=== PATIENT | female | born 1960 | race Caucasian/White ===

== ENCOUNTER 2020-10-14 11:46 | Outpatient (REF) | payer OTHER, SELFPAY ==
[2020-10-14 13:14] LABS: COVID-19 Test Negative (Negative)
== END 2020-10-14 11:47 | disposition home or self-care (01) ==
LOC: HO.EMPCOV 11:46
PROVIDERS: Visit Provider Internal Medicine
DX: Z20.828 Contact with and (suspected) exposure to other viral communicable diseases (principal)
CPT/HCPCS: 87635; C9803

== ENCOUNTER 2020-10-17 09:01 | Outpatient (REF) | payer OTHER, SELFPAY ==
[2020-10-17 09:27] LABS: COVID-19 Test Negative (Negative)
== END 2020-10-17 09:02 | disposition home or self-care (01) ==
LOC: HO.EMPCOV 09:01
PROVIDERS: Visit Provider Internal Medicine
DX: Z20.828 Contact with and (suspected) exposure to other viral communicable diseases (principal)
CPT/HCPCS: 87635; C9803

== ENCOUNTER 2020-10-28 13:13 | Outpatient (REF) | payer OTHER, SELFPAY ==
[2020-10-28 13:37] LABS: COVID-19 Test Negative (Negative)
== END 2020-10-28 13:14 | disposition home or self-care (01) ==
LOC: HO.EMPCOV 13:13
PROVIDERS: Visit Provider Internal Medicine
DX: Z20.828 Contact with and (suspected) exposure to other viral communicable diseases (principal)
CPT/HCPCS: 87635; C9803

== ENCOUNTER 2020-11-04 08:51 | Outpatient (REF) | payer OTHER, SELFPAY ==
[2020-11-04 09:26] LABS: COVID-19 Test Negative (Negative)
== END 2020-11-04 08:52 | disposition home or self-care (01) ==
LOC: HO.EMPCOV 08:51
PROVIDERS: Visit Provider Internal Medicine
DX: Z20.828 Contact with and (suspected) exposure to other viral communicable diseases (principal)
CPT/HCPCS: 87635; C9803

== ENCOUNTER 2020-12-16 10:38 | Outpatient (REF) | payer OTHER, SELFPAY ==
[2020-12-16 10:55] LABS: COVID-19 Test Negative (Negative)
== END 2020-12-16 10:39 | disposition home or self-care (01) ==
LOC: HO.EMPCOV 10:38
PROVIDERS: Visit Provider Internal Medicine
DX: Z20.822 Contact with and (suspected) exposure to COVID-19 (principal)
CPT/HCPCS: 36415; 87635; C9803

== ENCOUNTER 2021-02-15 19:42 | Emergency (ER) | payer OTHER, SELFPAY ==
--- NOTE | ~2021-02-15 | XR_ITS ---
EXAMINATION: XR CHEST CLINICAL INFORMATION: Cough. Pneumonia. COMPARISON: 03/28/2020 TECHNIQUE: Frontal view of the chest was obtained. FINDINGS: No significant abnormality is noted involving the heart, lungs, mediastinum, bony thorax or soft tissues. XR/XR chest 1V IMPRESSION: Unremarkable examination.
[2021-02-15 19:47] VITALS: BP 136/72; PULSE 100; RESP 18; TEMP 36.4; O2SAT 96
[2021-02-15 20:12] VITALS: BMI 26.6
--- NOTE | 2021-02-15 21:55 | ED.GENADULT ---
HPI - General Adult General Chief complaint: General Medical Stated complaint: CHEST INFECTION, ORAL INFECTION Time Seen by Provider: 02/15/21 20:16 Source: patient Mode of arrival: ambulatory Limitations: no limitations History of Present Illness HPI narrative: Patient been having dental pain seen dentist on Keflex now comes have a small swelling of the lower gums also complaining of cough for last few days no fever no chills Onset (ago): day(s) Related Data Previous Rx's Medication Instructions Recorded clindamycin HCl 300 mg PO QID #40 cap 02/15/21 tramadol 50 mg PO Q6H PRN #20 tab 02/15/21 Allergies Allergy/AdvReac Type Severity Reaction Status Date / Time Sulfa (Sulfonamide Allergy Intermediate MOUTH Unverified 08/15/20 15:40 Antibiotics) EXCORIATION [SULFA (SULFONAMIDE ANTIBIOTICS)] sulfamethoxazole Allergy Unknown MOUTH RASH Unverified 08/15/20 15:40 [From BACTRIM] trimethoprim [From BACTRIM] Allergy Unknown MOUTH RASH Unverified 08/15/20 15:40 Sulfa Allergy Unknown Uncoded 12/18/11 00:00 Review of Systems Review of Systems: Constitutional : No Weight loss, No Fever, No Chills ENT/Mouth : No sore throat, No Rhinorrhea Eyes: No Eye Pain, No Swelling Cardiovascular : No Chest Pain, no palpitations Respiratory : ++Cough, +Sputum, no shortness of breath Gastrointestinal : no Nausea, No Vomiting, No Diarrhea, No abdominal Pain, no black stools Genitourinary : No Dysuria, No Urinary Frequency Musculoskeletal : No joint pain, No Myalgias, No Joint Swelling Skin : No Skin Lesions, No rash Neuro : No Weakness, No Numbness, No Dizziness, No Headache Psych : No Anxiety/Panic, No Depression Heme/Lymph: No Bruising, No Lymphadenopathy Endocrine : No Polyuria, No Polydipsia All other systems reviewed and are negative PMFSH Past Medical History Medical History ADD (attention deficit disorder) Depressed Migraines Social History Social History Advance Directives: No Physical Exam Vital Signs: Vital Signs: Last Vital Signs Temp 97.5 F 02/15/21 19:47 Pulse 100 02/15/21 19:47 Resp 18 02/15/21 19:47 BP 136/72 02/15/21 19:47 Pulse Ox 96 02/15/21 19:47 Body Mass Index 26.6 Const: General: no acute distress Orientation/consciousness: patient oriented x3 HENMT: Head: Yes normocephalic Ears: hearing grossly normal bilaterally Teeth image: 1. Soft tissue swelling of the gum of tooth 25 Throat: Yes posterior oropharynx normal Resp: Effort & Inspection: normal respiratory effort Auscultation: clear to auscultation bilaterally, no crackles, no rales and no rhonchi Cardio: Palpation: normal PMI Rate: regular rate Rhythm: regular rhythm Heart sounds: S1 normal heart sound present and S2 normal heart sound present Peripheral pulses: Peripheral pulses 2+ throughout GI: Inspection: Yes normal to inspection Palpation (GI): Soft to palpation and nontender Neuro: General: patient oriented x3 and no focal motor deficits Procedures Abscess I/D Site: oral (Tooth 25) Side (if applicable): right Technique: needle aspiration Medical Decision Making [facility] Narrative Medical decision making narrative: Patient with small tooth abscess which is aspirated by the needle chest x-ray negative will change antibiotic to clindamycin advised to follow with dentist Discharge Plan Discharge Clinical Impression: Dental abscess Patient Disposition: Home, Self-Care Instructions: Dental Abscess (ED) Additional Instructions: Take antibiotic as prescribed and follow with your dentist Prescriptions: New clindamycin HCl 300 mg capsule 300 mg PO QID Qty: 40 RF: 0 tramadol 50 mg tablet 50 mg PO Q6H PRN (Reason: pain) Qty: 20 RF: 0 Interventions: ED Discharge Assessment Last Done: 02/15/21 22:17 Discharge Date/Time: 02/15/21 22:18
[2021-02-15] MEDS: traMADoL HCL 50 MG TABLET PO (22:16)
== END 2021-02-15 22:18 | disposition home or self-care (01) ==
PROVIDERS: Emergency Provider Internal Medicine; PCP Internal Medicine
DX: K04.7 Periapical abscess without sinus (principal); Z79.899 Other long term (current) drug therapy
CPT/HCPCS: 40800; 71045; 99283

== ENCOUNTER 2021-03-19 10:30 | Outpatient (REF) | payer OTHER, SELFPAY ==
[2021-03-19 11:16] LABS: MANUAL DIFF FLAG NO
[2021-03-19 11:35] LABS: Basophils Percent Auto 0.4 % (0-2); Eosinophils Absolute Auto 0.1 X10*3/uL (0.0-0.4); Eosinophils Percent Auto 1.5 % (0-4); Hematocrit 45.6 % (37-47); Hemoglobin 15.2 g/dl (12.0-16.0); Imm Gran Abs Auto 0.03 X10*3/uL (0.00-0.03); Imm Gran Pct Auto 0.4 % (0.0-0.4); Lymphocytes Absolute Auto 1.7 X10*3/uL (1.2-4.9); Lymphocytes Percent Auto 24.7 % (20-40); Mean Corpuscular HGB Conc 33.3 g/dl (31.0-35.0); Mean Corpuscular Hemoglobin 33.6 pg (27.0-33.0); Mean Corpuscular Volume 100.9 fL (80-98); Mean Platelet Volume 9.7 fL (9.4-12.3); Monocytes Absolute Auto 0.7 X10*3/uL (0.1-1.2); Monocytes Percent Auto 9.7 % (2-11); Neutrophils Absolute Auto 4.4 X10*3/uL (2.0-8.3); Neutrophils Percent Auto 63.3 % (45-73); Platelet Count 238 X10*3/uL (160-400); Red Blood Count 4.52 X10*6/uL (4.20-5.50); Red Cell Distribution Width 12.7 % (11.0-16.0); White Blood Count 6.9 X10*3/uL (4.8-10.8)
[2021-03-19 12:06] LABS: Anion Gap 13 (12-20); Blood Urea Nitrogen 10 mg/dL (9-16); Carbon Dioxide 27 mmol/L (22-29); Chloride 103 mmol/L (96-108); Cholesterol 216 mg/dL; Estimated Glomerular Filt Rate > 60; Glucose Fasting 96 mg/dL (60-99); Potassium 4.2 mmol/L (3.3-5.1); Sodium 139 mmol/L (135-145)
== END 2021-03-19 10:31 | disposition home or self-care (01) ==
LOC: HO.LAB 10:30
PROVIDERS: PCP Internal Medicine; Visit Provider Internal Medicine
DX: R53.83 Other fatigue (principal)
CPT/HCPCS: 36415; 80051; 82465; 82565; 82947; 84520; 85025

== ENCOUNTER 2021-04-22 08:15 | Inpatient (IN) | payer OTHER, SELFPAY ==
[2021-04-22] VITALS (10 sets, daily range): BP systolic 110–133; BP diastolic 59–70; PULSE 82–103; RESP 14–18; TEMP 36.4–36.9; O2SAT 94–98; BMI 27.5
--- NOTE | ~2021-04-22 | XR_ITS ---
EXAMINATION: XR KNEE, RIGHT CLINICAL INFORMATION: Fall. Pain. COMPARISON: None TECHNIQUE: Four views of the right knee. FINDINGS: There is a transverse comminuted fracture of the patella. There is 2.5 cm longitudinal displacement. No other fracture is seen. Femoral tibial joint is normal appearing. There is a joint effusion. There is soft tissue swelling XR/XR knee RT 4V IMPRESSION: Comminuted displaced patella fracture.
--- NOTE | ~2021-04-22 | FL_ITS ---
EXAMINATION: XR FLUOROSCOPY IMAGES CLINICAL INFORMATION: Comminuted distracted patellar fracture. Post reduction. COMPARISON: Radiographs right knee 04/22/2021 TECHNIQUE: Fluoroscopy performed by Dr. Velez Instr. Fluoroscopy time: 0.5 minutes DAP: 0.0491 Gycm2 Images: 2 FINDINGS: Comminuted patellar fracture is reduced with 3 longitudinal metallic pin and a cerclage wire anteriorly. Hardware is intact. Fracture fragments are in near-anatomic alignment. FL/FL guidance in OR IMPRESSION: Status post reduction patellar fracture.
--- NOTE | 2021-04-22 08:37 | ED_ITS ---
HPI - Extremity Injury (Lower) General Chief Complaint: Extremity Injury, Lower Stated Complaint: knee pain - fall Time Seen by Provider: 04/22/21 08:34 Source: patient and family Mode of arrival: wheelchair Limitations: no limitations History of Present Illness HPI Narrative: 60-year-old female with a past medical history of ADD, depression, migraines here with right knee pain status post fall last night. The patient also she tripped over a box lying directly on the right knee. There was no head injury or loss of consciousness. She now has pain in the right knee especially with weight-bearing Related Data Previous Rx's Medication Instructions Recorded clindamycin HCl 300 mg PO QID #40 cap 02/15/21 tramadol 50 mg PO Q6H PRN #20 tab 02/15/21 Allergies Allergy/AdvReac Type Severity Reaction Status Date / Time Sulfa (Sulfonamide Allergy Intermediate MOUTH Unverified 08/15/20 15:40 Antibiotics) EXCORIATION [SULFA (SULFONAMIDE ANTIBIOTICS)] sulfamethoxazole Allergy Unknown MOUTH RASH Unverified 08/15/20 15:40 [From BACTRIM] trimethoprim [From BACTRIM] Allergy Unknown MOUTH RASH Unverified 08/15/20 15:40 Sulfa Allergy Unknown Uncoded 12/18/11 00:00 Review of Systems Review of Systems: Yes all other systems are reviewed and are negative Constitutional: Constitutional: Reports no additional constitutional complaints, Denies body ache(s), Denies chills, Denies fever(s), Denies headache(s) and Denies weakness Eyes: Eyes: Reports no additional eye complaints and Denies change in vision ENT: Reports system reviewed and no additional complaints, except as documented, Denies dizziness, Denies headache(s), Denies nasal congestion, Denies nasal discharge and Denies neck pain Cardiovascular: Cardiovascular: Reports no additional cardiovascular complaints, Denies chest pain, Denies leg edema and Denies dyspnea Respiratory: Respiratory: Reports no additional respiratory complaints, Denies cough and Denies dyspnea Gastrointestinal: Gastrointestinal: Reports no additional gastrointestinal complaints, Denies abdominal pain, Denies diarrhea, Denies nausea and Denies vomiting Genitourinary: Genitourinary: Reports no additional female genitourinary complaints and Denies urinary incontinence Musculoskeletal: Musculoskeletal: Reports no additional musculoskeletal c omplaints, Denies back pain, Reports arthralgias, Reports joint swelling, Reports limited range of motion, Denies neck pain, Denies numbness and Denies tingling Integumentary/Breasts: Skin/Breast: Reports system reviewed and no additional complaints, except as docu and Denies rash Neurologic: Reports system reviewed and no additional complaints, except as documented, Denies Abnormal speech present, Denies dizziness, Denies headache(s), Denies numbness, Denies tingling and Denies weakness PMFSH Past Medical History Attestation statement: The following information was validated with the patient. Source: old records reviewed and nursing notes reviewed Medical History ADD (attention deficit disorder) Depressed Migraines Physical Exam Vital Signs: Vital Signs: Last Vital Signs Temp 98.4 F 04/22/21 09:46 Pulse 91 04/22/21 15:59 Resp 16 04/22/21 15:59 BP 133/61 04/22/21 15:59 Pulse Ox 94 04/22/21 13:29 Body Mass Index 27.5 Const: General: cooperative, healthy appearing, comfortable and no acute distress Orientation/consciousness: patient oriented x3 Limitations: no limitations HENMT: Head: Yes normal to inspection Ears: hearing grossly normal bilaterally General nose exam: Normal external nose present Face and sinus: Yes normal facial exam Mouth: Normal oral and palatal mucosa present Throat: Yes posterior oropharynx normal Eyes: General: appearance normal, both eyes and all related structures Pupils: Equal, round and reactive pupils present Neck: Neck: Yes normal visual inspection Chest: Chest palpation & inspection: normal inspection of the chest Resp: Effort & Inspection: normal respiratory effort Auscultation: clear to auscultation bilaterally Cardio: Rate: regular rate Rhythm: regular rhythm Peripheral pulses: Peripheral pulses 2+ throughout GI: Inspection: Yes normal to inspection Palpation (GI): Soft to palpation and nontender Auscultation: normal bowel sounds Back/Spine/Pelvis: Thoracic/Lumbar Spine: thoracic and lumbar spine normal to inspection Skin: General skin exam: no rashes or lesions noted Neuro: General: patient oriented x3, no focal motor deficits and normal sensation to monofilament Cranial nerves: Yes Equal, round and reactive pupils present Cognition (Neuro): normal cognition Speech: No Abnormal speech present Gait exam (Neuro): Normal gait present Motor exam (neuro): 5/5 motor strength present throughout Extrem: Other: Moderate swelling, ecchymosis and tenderness to the right anterior knee. Pain with flexion of the leg but able. No posterior knee pain or calf pain. General: Yes normal to inspection Course Course Course Narrative: Right knee pain status post mechanical fall. Will need x- rays, analgesia. 914-X-ray shows There is a transverse comminuted fracture of the patella. There is 2.5 cm longitudinal displacement. No other fracture is seen. Femoral tibial joint is normal appearing. There is a joint effusion. There is soft tissue swelling IMPRESSION: Comminuted displaced patella fracture. Call out to orthopedics to discuss. 919-Discussed with Adamaris MAYS from orthopedics. Recommended knee immobilizer, crutches with non-weight bearing. Discussed with patient. She has multiple steps to get up into her apartment. Will have Physical therapy come and evaluate her as well as case management if needed. CM also requested OT. 1644-Unfortunately, the patient will not get placed in a short-term rehab today. Nursing is aware. 1699-Sign out to night team pending above. Procedures Procedure Narrative Procedure Narrative: knee immobilizer Crutches MDM - Extremity Injury (Lower) Medical Records Attestation: I reviewed the patient's medical records. Lab Data Attestation: I reviewed the patient's lab results. Labs: Lab Results 04/22/21 Range/Units 16:07 COVID-19 ([facility]) Negative (Negative) COVID-19 Clin Com See Note Imaging Data knee right xray: Attestation: I personally reviewed and interpreted this imaging study as follows: Radiologist's impression: [address] [id number] ReportSigned Patient: Travis Hernandez#: [id number]: [id number]/Sex: 60 / FADM Date: 04/22/21Loc: EDAttending Dr: Ordering Physician: CALIXTO OSORIO NP Date of Service: 04/22/21 Procedure(s): XR knee RT 4V Accession Number(s): [id number] cc: CALIXTO OSORIO NP~ EXAMINATION: XR KNEE, RIGHT CLINICAL INFORMATION: Fall. Pain. COMPARISON: None TECHNIQUE: Four views of the right knee. FINDINGS: There is a transverse comminuted fracture of the patella. There is 2.5 cm longitudinal displacement. No other fracture is seen. Femoral tibial joint is normal appearing. There is a joint effusion. There is soft tissue swelling XR/XR knee RT 4V IMPRESSION: Comminuted displaced patella fracture. Discharge Plan Discharge Clinical Impression: Right patella fracture Qualifiers: Encounter type: initial encounter Fracture type: closed Fracture morphology: unspecified fracture morphology Fracture alignment: displaced Qualified Code(s): S82.001A - Unspecified fracture of right patella, initial encounter for closed fracture Prescriptions: No Action clindamycin HCl 300 mg capsule 300 mg PO QID Qty: 40 RF: 0 tramadol 50 mg tablet 50 mg PO Q6H PRN (Reason: pain) Qty: 20 RF: 0
[2021-04-22] MEDS: oxyCODONE HCl Immed Release 5 MG TABLET PO ×2 (08:43→11:30)
[2021-04-22] MEDS: Acetaminophen 325 MG TABLET 650 MG PO (08:43)
[2021-04-22] MEDS: Ketorolac Tromethamine 60 MG/2 ML VIAL IM (09:33)
--- NOTE | 2021-04-22 11:32 | MHC.CM.ED ---
Addendum entered by Zo Cat 04/22/21 11:35: Patient received 2nd Pfizer vaccine on 12/11/20. Original Note: Received case management consult from KRISTOPHER Martinez. Patient came to the ER after a mechanical fall. Work up showed a patellar fracture. Physical therapy eval completed. Acute rehab is being recommended. Met with patient in regards to discharge planning. 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 Patient agreeable to referrals to all 3 acute rehabs. Referrals made via allscripts. [facility] is only acute rehab willing to offer a bed. [facility] is in the process of obtaining insurance auth. Continue to monitor for d/c needs.
[2021-04-22] MEDS: oxyCODONE HCl Immed Release 5 MG TABLET 10 MG PO (15:57)
--- NOTE | 2021-04-22 16:00 | PC.NURSE ---
medicated for pain, awaiting rehAB PLACEMENT
[2021-04-22 16:39] LABS: COVID-19 Test Negative (Negative)
--- NOTE | 2021-04-22 17:03 | HE.PHANOTE ---
Pharmacy Consult ? Medication Reconciliation Pharmacy has completed the medication reconciliation and there were no significant medication issues requiring provider attention. Elisha Barton Pharm.D
--- NOTE | 2021-04-22 18:04 | MHC.CM.ED ---
CM met with pt to complete at HCP. HCP reviewed. HCP/daughter Kristi Villanueva ([phone]). HCP completed, signed, copies given to patient and uploaded into [employer] and [email or web address]. Spoke with liason from [facility]. No authorization tonight. Pt will stay overnight in ED. Will get hospital bed. 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 Covid test obtained. Pt is fully vaccinated with Pfizer (12/11/20. CM will follow for d/c needs.
[2021-04-23] VITALS (8 sets, daily range): BP systolic 97–123; BP diastolic 52–76; PULSE 68–95; RESP 14–20; TEMP 36.7–37.3; O2SAT 92–95
[2021-04-23] MEDS: oxyCODONE HCl Immed Release 5 MG TABLET 10 MG PO ×2 (03:42→22:19)
--- NOTE | 2021-04-23 08:40 | ECG_ITS ---
Test Reason : CP Blood Pressure : / mmHG Vent. Rate : 082 BPM Atrial Rate : 082 BPM P-R Int : 198 ms QRS Dur : 078 ms QT Int : 400 ms P-R-T Axes : 068 054 057 degrees QTc Int : 467 ms Normal sinus rhythm Possible Left atrial enlargement Borderline ECG When compared with ECG of 03-NOV-2016 15:02, No significant change was found Referred By: Michelle Serna Electronically Signed By:DANN CANTOR
[2021-04-23] MEDS: LORazepam 1 MG TABLET 2 MG PO (08:51)
[2021-04-23 09:04] LABS: MANUAL DIFF FLAG NO
[2021-04-23 09:06] LABS: Basophils Percent Auto 0.4 % (0-2); Eosinophils Absolute Auto 0.1 X10*3/uL (0.0-0.4); Eosinophils Percent Auto 1.8 % (0-4); Hematocrit 40.5 % (37-47); Hemoglobin 13.7 g/dl (12.0-16.0); Imm Gran Abs Auto 0.01 X10*3/uL (0.00-0.03); Imm Gran Pct Auto 0.1 % (0.0-0.4); Lymphocytes Absolute Auto 1.6 X10*3/uL (1.2-4.9); Lymphocytes Percent Auto 21.9 % (20-40); Mean Corpuscular HGB Conc 33.8 g/dl (31.0-35.0); Mean Corpuscular Hemoglobin 33.9 pg (27.0-33.0); Mean Corpuscular Volume 100.2 fL (80-98); Mean Platelet Volume 9.9 fL (9.4-12.3); Monocytes Absolute Auto 0.7 X10*3/uL (0.1-1.2); Monocytes Percent Auto 9.1 % (2-11); Neutrophils Absolute Auto 4.8 X10*3/uL (2.0-8.3); Neutrophils Percent Auto 66.7 % (45-73); Platelet Count 216 X10*3/uL (160-400); Red Blood Count 4.04 X10*6/uL (4.20-5.50); Red Cell Distribution Width 13.2 % (11.0-16.0); White Blood Count 7.2 X10*3/uL (4.8-10.8)
[2021-04-23 09:11] LABS: Prothrombin Time 12.2 SEC (10.8-13.0)
[2021-04-23] MEDS: ARIPiprazole 10 MG TABLET PO (09:22)
[2021-04-23] MEDS: Multivitamin TABLET 1 TAB PO (09:23)
[2021-04-23] MEDS: FLUoxetine HCl 20 MG CAPSULE 60 MG PO (09:23)
[2021-04-23 09:46] LABS: Anion Gap 13 (12-20); Blood Urea Nitrogen 15 mg/dL (9-16); Calcium 9.1 mg/dL (8.4-10.2); Carbon Dioxide 25 mmol/L (22-29); Chloride 104 mmol/L (96-108); Creatinine Clr Calc Pharmacy 99.8; Estimated Glomerular Filt Rate > 60; Glucose Random 96 mg/dL (60-115); Potassium 4.6 mmol/L (3.3-5.1); Sodium 137 mmol/L (135-145)
--- NOTE | 2021-04-23 12:29 | MHC.CM.ED ---
Received telephone call from Rina of [employer]. She is patient's casemanager at [facility] [facility]. Rina can be reached via telephone at [phone]. Rina is the point of contact for discharge planning. Continue to monitor for d/c needs.
[2021-04-23] MEDS: Methylphenidate HCl 10 MG TABLET 20 MG PO (13:25)
--- NOTE | 2021-04-23 13:30 | MHC.CM.ED ---
Late entry from 04/23/21 at 0900: Received notification from KRISTOPHER Martinez that patient will be admitted to the hospital today for surgery tomorrow. Nona frank [facility] aware and will follow for d/c needs.
[2021-04-23] MEDS: oxyCODONE HCl Immed Release 5 MG TABLET PO ×3 (13:34→19:31)
--- NOTE | 2021-04-23 14:53 | P.HPOP_ITS ---
History of Present Illness History of Present Illness Date of Service: 04/23/21 Chief complaint: knee pain - fall Narrative: Unique Hernandez is a 60 year old female who presented to the ED on 04/22/21 after sustaining a fall landing directly onto her knees. Immediately after the fall the patient felt immediate pain and was unable to ambulate. She then presented to the ED where x-rays were obtained and she was found to have a displaced transverse patella fracture. Orthopedics was then consulted for further evaluation. The patient was initially going to be managed in the outpatient setting with surgical planning for 04/24/21 and was pending acceptance to rehab. However, the patient has not been accepted to rehab and surgery is needed for tomorrow. She has been admitted to the orthopedic service in preparation of surgery tomorrow. Review of Systems Review of Systems: Yes all other systems are reviewed and are negative PMFSH Past Medical History Medical History ADD (attention deficit disorder) Depressed Migraines Meds Allergies Allergy/AdvReac Type Severity Reaction Status Date / Time Sulfa (Sulfonamide Allergy Intermediate MOUTH Unverified 08/15/20 15:40 Antibiotics) EXCORIATION [SULFA (SULFONAMIDE ANTIBIOTICS)] sulfamethoxazole Allergy Unknown MOUTH RASH Unverified 08/15/20 15:40 [From BACTRIM] trimethoprim [From BACTRIM] Allergy Unknown MOUTH RASH Unverified 08/15/20 15:40 Sulfa Allergy Unknown Uncoded 12/18/11 00:00 Active Medications: Current Medications Generic Name Dose Route Start Last Admin Trade Name Freq PRN Reason Stop Dose Admin Acetaminophen 650 mg 04/22/21 15:37 Acetaminophen 325 Mg Tablet PO QID PRN Pain, Mild (Pain Scale 1-3) Aripiprazole 10 mg 04/23/21 10:00 04/23/21 09:22 Aripiprazole 10 Mg Tablet PO 10 mg DAILY JERILYN Administration Fluoxetine HCl 60 mg 04/23/21 10:00 04/23/21 09:23 Fluoxetine Hcl 20 Mg Capsule PO 60 mg DAILY JERILYN Administration Ibuprofen 600 mg 04/22/21 15:37 Ibuprofen 600 Mg Tablet PO QID PRN Pain, Moderate (Pain Scale 4-6 Methylphenidate HCl 10 mg 04/23/21 15:30 Methylphenidate Hcl 10 Mg Tablet PO DAILY@1530 JERILYN Methylphenidate HCl 20 mg 04/23/21 12:00 04/23/21 13:25 Methylphenidate Hcl 10 Mg Tablet PO 20 mg DAILY@1200 [facility] Administration Multivitamins/Vitamin C 1 tab 04/23/21 10:00 04/23/21 09:23 Multivitamin Tablet PO 1 tab DAILY [facility] Administration Non-Formulary Medication 30 mg 04/23/21 09:15 Methylphenidate Hcl PO DAILY [facility] Oxycodone HCl 10 mg 04/22/21 15:35 04/23/21 03:42 Oxycodone Hcl Immed Release 5 Mg Tablet PO 10 mg Q6H PRN Administration Pain, Severe (Pain Scale 7-10) Oxycodone HCl 5 mg 04/22/21 15:36 04/23/21 13:34 Oxycodone Hcl Immed Release 5 Mg Tablet PO 5 mg Q6H PRN Administration Pain, Moderate (Pain Scale 4-6 Pharmacy Consult 1 each 04/22/21 16:44 Consult Rx Perform Med Rec MISCELLANE ONCE PRN Consult order Trazodone HCl 50 mg 04/23/21 09:05 Trazodone Hcl 50 Mg Tablet PO BEDTIME PRN insomnia Home Medications Medication Instructions Recorded Confirmed Last Taken Type aripiprazole 10 mg PO DAILY 04/22/21 04/22/21 04/21/21 History fluoxetine 60 mg PO DAILY 04/22/21 04/22/21 04/21/21 History methylphenidate HCl 10 mg PO DAILY@1530 04/22/21 04/22/21 04/21/21 History methylphenidate HCl 20 mg PO DAILY@1200 04/22/21 04/22/21 04/21/21 History methylphenidate HCl 30 mg PO DAILY 04/22/21 04/22/21 04/21/21 History multivitamin 1 tab PO DAILY 04/22/21 04/22/21 Unknown History naproxen 500 mg PO BID PRN 04/22/21 04/22/21 Unknown History trazodone 50 mg PO BEDTIME PRN 04/22/21 04/22/21 Unknown History Physical Exam Vital Signs: Vital Signs: Last Vital Signs Temp 98.3 F 04/22/21 21:11 Pulse 95 04/23/21 13:27 Resp 16 04/23/21 13:27 BP 118/76 04/23/21 13:27 Pulse Ox 92 04/23/21 13:27 Body Mass Index 27.5 Const: General: cooperative, healthy appearing, comfortable, no acute distress, well developed, alert and awake Orientation/consciousness: patient oriented x3 HENMT: Head: Yes normal to inspection, Yes normocephalic and Yes atraumatic Eyes: General: appearance normal, both eyes and all related structures Neck: Neck: Yes normal visual inspection and Yes no lymphadenopathy Resp: Effort & Inspection: normal respiratory effort and able to speak in complete sentences Cardio: Rate: regular rate Peripheral pulses: Peripheral pulses 2+ throughout GI: Inspection: Yes normal to inspection Palpation (GI): Soft to palpation Skin: General skin exam: no rashes or lesions noted Neuro: General: patient oriented x3 Extrem: Other: Right knee moderate edema with two superficial skin abrasions. She is unable to flex or extend the knee. Sensation is intact. She is able to plantarflex and dorsiflex. Pedal pulse intact. Psych: Mental Status: mental status grossly normal Results Labs Result Diagrams: 04/23/21 08:58 04/23/21 08:58 Labs: Abnormal lab results 04/23/21 Range/Units 08:58 RBC 4.04 L (4.20-5.50) X10*6/uL MCV 100.2 H (80-98) fL MCH 33.9 H (27.0-33.0) pg H & H 04/23/21 Range/Units 08:58 Hgb 13.7 (12.0-16.0) g/dl Hct 40.5 (37-47) % Coagulation 04/23/21 Range/Units 08:58 INR 1.0 (0.9-1.1) All other labs normal. Assessment and Plan (1) Right patella fracture: Qualifiers: Encounter type: initial encounter Fracture alignment: displaced Fracture morphology: unspecified fracture morphology Fracture type: closed Qualified Code(s): S82.001A - Unspecified fracture of right patella, initial encounter for closed fracture Status: Acute Ms. Elam is a 60 yo female who presented to the ED after sustaining a fall on 04/22/21 onto her right knee. After the fall she felt immediate pain and was unable to ambulate. She presented to the ED shortly after the fall where x- rays were obtained and she was found to have a transverse displaced right patella fracture. I discussed the case with Dr. Parker and explained the extent of the injury to the patient and options available which include surgical intervention. I explained the procedure in detail along with the length of recovery and rehab course. I explained the risk, benefits and alternatives. Risk including, but not limited to infection, blood clots, bleeding, non union or malunion and nerve/tissue damage to surrounding areas. I answered all their questions and with their understanding they have consented to move forward with Operative Fixation of the right patella. The patient will be T&S, med clearance obtained and NPO after midnight. Procedures Date of Service Date of Service: 04/23/21
[2021-04-23] MEDS: Methylphenidate HCl 10 MG TABLET PO (15:47)
--- NOTE | 2021-04-23 17:41 | MHC.CM.PN ---
CM met with pt. Will be admitted. Bed pending. Will have surgery in the AM. [facility] is following. Pt unsure if she still wants to go to rehab. Will wait till after her surgery and MD recommendations. Pt presently feels she can go home. Has been using the walker to the BR. Has stairs to enter home, then all on one level. States son and daughter can help her. Pt uses no equipment at home and has no services. 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 Pt very concerned about finances and job security. CM encouraged pt to apply for FMLA. Pt called HR and left a detailed message regarding need for FMLA. CM also reminded pt about the employee assistance program. Pt seems a bit more reassured. CM to follow for d/c needs.
[2021-04-23] MEDS: Acetaminophen 325 MG TABLET 650 MG PO (19:30)
[2021-04-23] MEDS: Ibuprofen 600 MG TABLET PO (19:30)
[2021-04-23] MEDS: Dextrose 5 % and 0.45 % NaCl 1,000 ML 80 ML IVCONT (21:45)
[2021-04-23] MEDS: 0.9 % Sodium Chloride Flush 3 ML SYRINGE IVFLUSH (21:48)
[2021-04-23] MEDS: Docusate Sodium 100 MG CAPSULE PO (22:19)
[2021-04-24] VITALS (16 sets, daily range): BP systolic 92–142; BP diastolic 52–67; PULSE 65–97; RESP 14–20; TEMP 35.9–36.8; O2SAT 92–99
[2021-04-24] MEDS: Morphine Sulfate 2 MG/ML CARTRIDGE IVPUSH ×3 (00:41→23:31)
[2021-04-24] MEDS: 0.9 % Sodium Chloride Flush 3 ML SYRINGE IVFLUSH ×3 (04:37→19:48)
[2021-04-24] MEDS: oxyCODONE HCl Immed Release 5 MG TABLET 10 MG PO ×3 (07:39→19:47)
--- NOTE | 2021-04-24 07:42 | MHC.SHP ---
Pre-Procedural Eval Section A The patient is an INPATIENT: Yes Section B Chief Complaint: Right patella fracture Allergies: Allergies Allergy/AdvReac Type Severity Reaction Status Date / Time Sulfa (Sulfonamide Allergy Intermediate MOUTH Verified 04/23/21 19:17 Antibiotics) EXCORIATION [SULFA (SULFONAMIDE ANTIBIOTICS)] sulfamethoxazole Allergy Unknown MOUTH RASH Verified 04/23/21 19:17 [From BACTRIM] trimethoprim [From BACTRIM] Allergy Unknown MOUTH RASH Verified 04/23/21 19:17 Sulfa Allergy Unknown Rash Uncoded 04/23/21 19:17 Plan I have reviewed the history and physical and performed a pertinent physical examination on my patient. No changes have occurred unless specified.
[2021-04-24] MEDS: Lactated Ringers 1,000 ML 50 ML IVCONT (09:40)
--- NOTE | 2021-04-24 10:10 | P.CONAN_ITS ---
[facility] Active Problems Active Problems: All Active Problems (Updated 04/22/21 @ 15:47 by Michelle sapp NP) Right patella fracture (Acute) Past Medical History Medical History ADD (attention deficit disorder) Depressed Migraines Social History Social History Household Members: Children Housing: Apartment Do you presently have visiting nurse or other home services: No Patient Tobacco Use Status: Current everyday Tobacco user Tobacco use type: Cigarette Cigarette Packs Per Day: 0.5 Cigarettes Per Day: 15 Years Smoked: 49 Smoked in Last 30 Days: Yes Patient Interested in Nicotine Replacement: No Patient Given Instructions on How to Stop Smoking: No (pt refused) Use of substances other than those prescribed or required for medical reasons: No Currently Displaying Signs/Symptoms of Drug Intoxication Withdrawal: No Have you been hit, kicked, punched, or otherwise hurt by someone within the past year? If so, by whom?: No Do you feel safe in your current relationship?: No Current Relationship Is there a partner from a previous relationship who is making you feel unsafe no w?: No Are you made to feel afraid or neglected: No Are you DNR?: No Advance Directives: No Advance Directives Information Provided: No Do you have thoughts of harming others: None Do you have a plan to hurt others: No Plan Recently lost weight without trying: No How much weight loss: Not applicable Eating poorly because of decreased appetite: No Nutrition screen score: 0 Nutrition Risks: No Nutritional Risk Patient : No : No Poor oral hygiene: No service: No Current occupational status: employed Meds Allergies Allergy/AdvReac Type Severity Reaction Status Date / Time Sulfa (Sulfonamide Allergy Intermediate MOUTH Verified 04/23/21 19:17 Antibiotics) EXCORIATION [SULFA (SULFONAMIDE ANTIBIOTICS)] sulfamethoxazole Allergy Unknown MOUTH RASH Verified 04/23/21 19:17 [From BACTRIM] trimethoprim [From BACTRIM] Allergy Unknown MOUTH RASH Verified 04/23/21 19:17 Sulfa Allergy Unknown Rash Uncoded 04/23/21 19:17 Active Medications: Current Medications Generic Name Dose Route Start Last Admin Trade Name Freq PRN Reason Stop Dose Admin Acetaminophen 650 mg 04/23/21 20:13 Acetaminophen 325 Mg Tablet PO Q6H PRN Pain, Mild (Pain Scale 1-3) Docusate Sodium 100 mg 04/23/21 20:13 04/23/21 22:21 Docusate Sodium 100 Mg Capsule PO Not Given BID [facility] Dextrose/Sodium Chloride 1,000 mls @ 80 mls/hr 04/23/21 20:13 04/23/21 21:45 D51/2ns IVCONT 80 mls/hr .[id number] JERILYN Administration Morphine Sulfate 2 mg 04/23/21 20:13 04/24/21 00:41 Morphine Sulfate 2 Mg/Ml Cartridge IVPUSH 2 mg Q2H PRN Administration Pain, Severe (Pain Scale 7-10) Naloxone HCl 0.2 mg 04/23/21 20:13 Naloxone Hcl 0.4 Mg/Ml Vial IVPUSH Q2M PRN Excessive sedation or RR < 8 Ondansetron HCl 4 mg 04/23/21 20:13 Ondansetron Hcl 4 Mg/2 Ml Vial IVPUSH Q8H PRN Nausea and Vomiting Oxycodone HCl 10 mg 04/23/21 20:13 04/24/21 07:39 Oxycodone Hcl Immed Release 5 Mg Tablet PO 10 mg Q6H [facility] Administration Sodium Chloride 3 ml 04/23/21 20:13 04/24/21 07:40 0.9 % Sodium Chloride Flush 3 Ml Syringe IVFLUSH Not Given QSHIFT [facility] Home Medications Medication Instructions Recorded Confirmed Last Taken Type aripiprazole 10 mg PO DAILY 04/22/21 04/22/21 04/21/21 History fluoxetine 60 mg PO DAILY 04/22/21 04/22/21 04/21/21 History methylphenidate HCl 10 mg PO DAILY@1530 04/22/21 04/22/21 04/21/21 History methylphenidate HCl 20 mg PO DAILY@1200 04/22/21 04/22/21 04/21/21 History methylphenidate HCl 30 mg PO DAILY 04/22/21 04/22/21 04/21/21 History multivitamin 1 tab PO DAILY 04/22/21 04/22/21 Unknown History naproxen 500 mg PO BID PRN 04/22/21 04/22/21 Unknown History trazodone 50 mg PO BEDTIME PRN 04/22/21 04/22/21 Unknown History Exam Exam Date and Time: April 24, 2021 1010 Height,Weight and Vital Signs: Height 5 ft 5 in Weight 165 lb 5.547 oz Last Vital Signs Temp 98.2 F 04/24/21 09:08 Pulse 65 04/24/21 09:08 Resp 16 04/24/21 09:08 BP 98/53 L 04/24/21 09:08 Pulse Ox 96 04/24/21 09:08 Pertinent Lab Results Pertinent Lab Results: Laboratory Tests 04/22/21 04/23/21 04/23/21 16:07 08:58 08:58 WBC 7.2 RBC 4.04 L Hgb 13.7 Hct 40.5 MCV 100.2 H MCH 33.9 H MCHC 33.8 RDW 13.2 Plt Count 216 MPV 9.9 Immature Gran % (Auto) 0.1 Neut % (Auto) 66.7 Lymph % (Auto) 21.9 Pender % (Auto) 9.1 Eos % (Auto) 1.8 Baso % (Auto) 0.4 Lymph # (Auto) 1.6 Pender # (Auto) 0.7 Eos # (Auto) 0.1 Baso # (Auto) 0.0 Abs Immat Gran (auto) 0.01 Absolute Neuts (auto) 4.8 Absolute Nucleated RBC 0.000 Nucleated RBC % (auto) 0.0 PT INR Sodium 137 Potassium 4.6 Chloride 104 Carbon Dioxide 25 Anion Gap 13 BUN 15 Creatinine 0.60 Estim Creat Clear Calc 99.8 Estimated GFR > 60 Random Glucose 96 Calcium 9.1 COVID-19 ([facility]) Negative COVID-19 Clin Com See Note Blood Type Antibody Screen 04/23/21 04/23/21 08:58 09:20 WBC RBC Hgb Hct MCV MCH MCHC RDW Plt Count MPV Immature Gran % (Auto) Neut % (Auto) Lymph % (Auto) Pender % (Auto) Eos % (Auto) Baso % (Auto) Lymph # (Auto) Pender # (Auto) Eos # (Auto) Baso # (Auto) Abs Immat Gran (auto) Absolute Neuts (auto) Absolute Nucleated RBC Nucleated RBC % (auto) PT 12.2 INR 1.0 Sodium Potassium Chloride Carbon Dioxide Anion Gap BUN Creatinine Estim Creat Clear Calc Estimated GFR Random Glucose Calcium COVID-19 ([facility]) COVID-19 Clin Com Blood Type A Negative Antibody Screen NEGATIVE Airway Mallampati Class: II TM Dist: >3cm Neck ROM: Full Denture: Upper Partial: Lower Loose/Missing/Broken Teeth: Yes Heart: RRR Assessment and Plan Assessment Anesthesia Assessment: Anesthesia Plan Discussed and Chart Reviewed Final Anesthetic Review NPO: Yes ASA Class: II Final Preanesthetic Review: No Changes in Pt Med Stat, Meds/Allgs Chart Reviewed, Consent Obtained/Reviewed and Anes Risks/Benef Reviewed Patient Risk: Low Procedure Risk: Low Anesthetic Plan Anesthetic Plan: GA Disposition: Standard PACU
[2021-04-24] MEDS: Scopolamine 1.5 MG PATCH.TD.3 TRANSDERMA (10:19)
[2021-04-24] MEDS: HYDROmorphone HCl 0.5 MG/0.5 ML SYRINGE 0.25 MG IVPUSH ×2 (12:20→12:25)
[2021-04-24] MEDS: Ketorolac Tromethamine 15 MG/ML VIAL IVPUSH (12:23)
[2021-04-24] MEDS: Dextrose 5 % and 0.45 % NaCl 1,000 ML 80 ML IVCONT (14:57)
--- NOTE | 2021-04-24 15:12 | P.CONIM_ITS ---
History of Present Illness Data of Consult Service Date: 04/24/21 Requesting physician: Cameron Zamorano Primary Care Provider: Kyler Barber MD HPI Reason for consult: pre op clearance This 60-year-old female who is admitted under the Orthopedic Services for a comminuted displaced patella fracture. The initial consult was requested for preop clearance but it appears that the patient has already had her surgery. Discussed with orthopedic PA who requested consult for now for postop monit oring. Patient is seen and examined in her room. She reports minor discomfort at the surgical site but otherwise her main complaint is of anxiety how she is going to manage with the injury. She denies any chest pain or shortness of breath. She denies any abdominal pain, nausea, vomiting. She denies any headache or dizziness. She endorses a history of Depression, anxiety and ADHD. Review of Systems Review of Systems: General - denies fevers or chills, denies weakness or fatigue HEENT -denies blurred vision, denies headache, denies sore throat Cardiovascular - denies chest pain or palpitations, denies edema Respiratory - denies shortness of breath, coughing, wheezing Gastrointestinal - denies abdominal pain, nausea, vomiting, diarrhea - denies flank pain, denies dysuria, denies frequency or urgency Musculoskeletal - denies back pain, denies hip pain, denies knee pain, denies shoulder pain Neurological - denies any focal weakness or numbness Skin, denies any bruising or redness Psychiatric - denies any suicidal ideation, hallucinations, homicidal ideation, +anxiety Endocrinology - denies intolerance to hot / cold temperatures [facility] Medical History ADD (attention deficit disorder) Depressed Migraines Pertinent family history: Reports history of alcohoism and cancerin her family Social History (Updated 04/24/21 @ 15:23 by Adolfo Monae MD) Household Members: Children Housing: Apartment Do you presently have visiting nurse or other home services: No Patient Tobacco Use Status: Current everyday Tobacco user Tobacco use type: Cigarette Cigarette Packs Per Day: 0.5 Cigarettes Per Day: 15 Years Smoked: 49 Smoked in Last 30 Days: Yes Patient Interested in Nicotine Replacement: No Patient Given Instructions on How to Stop Smoking: No (pt refused) Use of substances other than those prescribed or required for medical reasons: No Currently Displaying Signs/Symptoms of Drug Intoxication Withdrawal: No Have you been hit, kicked, punched, or otherwise hurt by someone within the past year? If so, by whom?: No Do you feel safe in your current relationship?: No Current Relationship Is there a partner from a previous relationship who is making you feel unsafe now?: No Are you made to feel afraid or neglected: No Are you DNR?: No Advance Directives: No Advance Directives Information Provided: No Do you have thoughts of harming others: None Do you have a plan to hurt others: No Plan Recently lost weight without trying: No How much weight loss: Not applicable Eating poorly because of decreased appetite: No Nutrition screen score: 0 Nutrition Risks: No Nutritional Risk Patient : No : No Poor oral hygiene: No service: No Current occupational status: employed Meds Allergies Allergy/AdvReac Type Severity Reaction Status Date / Time Sulfa (Sulfonamide Allergy Intermediate MOUTH Verified 04/23/21 19:17 Antibiotics) EXCORIATION [SULFA (SULFONAMIDE ANTIBIOTICS)] sulfamethoxazole Allergy Unknown MOUTH RASH Verified 04/23/21 19:17 [From BACTRIM] trimethoprim [From BACTRIM] Allergy Unknown MOUTH RASH Verified 04/23/21 19:17 Sulfa Allergy Unknown Rash Uncoded 04/23/21 19:17 Active Medications: Current Medications Generic Name Dose Route Start Last Admin Trade Name Freq PRN Reason Stop Dose Admin Acetaminophen 650 mg 04/23/21 20:13 Acetaminophen 325 Mg Tablet PO Q6H PRN Pain, Mild (Pain Scale 1-3) Docusate Sodium 100 mg 04/23/21 20:13 04/24/21 14:27 Docusate Sodium 100 Mg Capsule PO Not Given BID JERILYN Dextrose/Sodium Chloride 1,000 mls @ 80 mls/hr 04/23/21 20:13 04/24/21 14:57 D51/2ns IVCONT 80 mls/hr .[id number] JERILYN Administration Lactated Ringer's 1,000 mls @ 50 mls/hr 04/24/21 10:30 04/24/21 14:27 Lr IVCONT Infused .Q20H JERILYN Infusion Morphine Sulfate 2 mg 04/23/21 20:13 04/24/21 00:41 Morphine Sulfate 2 Mg/Ml Cartridge IVPUSH 2 mg Q2H PRN Administration Pain, Severe (Pain Scale 7-10) Naloxone HCl 0.2 mg 04/23/21 20:13 Naloxone Hcl 0.4 Mg/Ml Vial IVPUSH Q2M PRN Excessive sedation or RR < 8 Ondansetron HCl 4 mg 04/23/21 20:13 Ondansetron Hcl 4 Mg/2 Ml Vial IVPUSH Q8H PRN Nausea and Vomiting Oxycodone HCl 10 mg 04/23/21 20:13 04/24/21 13:52 Oxycodone Hcl Immed Release 5 Mg Tablet PO 10 mg Q6H JERILYN Administration Sodium Chloride 3 ml 04/23/21 20:13 04/24/21 07:40 0.9 % Sodium Chloride Flush 3 Ml Syringe IVFLUSH Not Given QSHIFT [facility] Home Medications Medication Instructions Recorded Confirmed Last Taken Type aripiprazole 10 mg PO DAILY 04/22/21 04/22/21 04/21/21 History fluoxetine 60 mg PO DAILY 04/22/21 04/22/21 04/21/21 History methylphenidate HCl 10 mg PO DAILY@1530 04/22/21 04/22/21 04/21/21 History methylphenidate HCl 20 mg PO DAILY@1200 04/22/21 04/22/21 04/21/21 History methylphenidate HCl 30 mg PO DAILY 04/22/21 04/22/21 04/21/21 History multivitamin 1 tab PO DAILY 04/22/21 04/22/21 Unknown History naproxen 500 mg PO BID PRN 04/22/21 04/22/21 Unknown History trazodone 50 mg PO BEDTIME PRN 04/22/21 04/22/21 Unknown History Physical Exam Vital Signs and Narrative: Vital Signs: Last Vital Signs Temp 96.7 F L 04/24/21 14:24 Pulse 86 04/24/21 14:24 Resp 16 04/24/21 14:24 BP 122/67 04/24/21 14:24 Pulse Ox 93 04/24/21 14:24 Body Mass Index 27.5 Const: Other: General - no acute distress, appears comfortable Cardiovascular - regular rate and rhythm, S1-S2 Lungs - normal respiratory effort, clear to auscultation bilaterally, no wheezing Abdomen - soft, nontender, no rebound or guarding Extremities - no edema bilaterally Neuro - awake and alert, no focal deficits Results Labs CBC and Chem 7: 04/23/21 08:58 04/23/21 08:58 Assessment and Plan (1) Right patella fracture: Qualifiers: Encounter type: initial encounter Fracture alignment: displaced Fracture morphology: unspecified fracture morphology Fracture type: closed Qualified Code(s): S82.001A - Unspecified fracture of right patella, initial encounter for closed fracture Status: Acute This is a 60 yo F admitted by ortho for Patellar fracture. Initial consult was requested for pre-operative clearance, but it appears that the patient has already had surgery. At this time, she does not seem to have any active medical issues. 1. Depression / anxiety / ADHD continue baseline meds 2. Tobacco Use will order patch 3. Patellar Fx s/p surgery mgmt per surgery DVT pptx, per orthopedics Medically stable, will sign off. Please reconsult or tiger-connect if any ques tions.
--- NOTE | 2021-04-24 15:49 | MHC.CM.PN ---
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
--- NOTE | 2021-04-24 15:54 | MHC.CM.PN ---
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 PATIENT REPORTED THAT SHE WAS TOLD THAT THE SURGEON WAS NOT SURE IF SHE WOULD BNEED TO BE NON WEIGHT BEARING FOR 6-8 WEEKS OR POSSIBLY LONGER , SHE WILL KNOW MORE TOMORROW. PATIENT LIVES IN [facility] AND HER SON LIVES WITH HER, SHE LIVES ON THE SECOND FLOOR, SHE PRIOR TO INJURY SHE WAS ACTIVE INDEPENDENT IN AL ADLS AND MOBILITY WITH OUT THE USE OF ANY DEVICE. SHE HAS A HCP ON FILE CONFIRMED PCP DR CANDELARIO MONROY. PATIENT IS INTERESTED IN POSSIBLE A-REHAB AT [facility] TO GET HER UPPER BODY STRENGTH STRONGER SO SHE WOULD BE ABLE TO WALK IF POSSIBLE WITH A CANE VS STR REQUESTED LIST OF INSURANCE CONTRACTED FACILITIES TO REVIEW .
[2021-04-24] MEDS: ARIPiprazole 10 MG TABLET PO (17:00)
[2021-04-24] MEDS: Methylphenidate HCl 10 MG TABLET PO (17:00)
[2021-04-24] MEDS: FLUoxetine HCl 20 MG CAPSULE 60 MG PO (17:00)
[2021-04-24] MEDS: Docusate Sodium 100 MG CAPSULE PO (19:47)
[2021-04-25] VITALS (7 sets, daily range): BP systolic 93–114; BP diastolic 52–58; PULSE 78–94; RESP 16–18; TEMP 36.1–36.9; O2SAT 93–98
[2021-04-25] MEDS: oxyCODONE HCl Immed Release 5 MG TABLET 10 MG PO ×4 (02:20→19:57)
[2021-04-25] MEDS: Lactated Ringers 1,000 ML 50 ML IVCONT ×2 (04:23→23:59)
[2021-04-25] MEDS: FLUoxetine HCl 20 MG CAPSULE 60 MG PO (07:25)
[2021-04-25] MEDS: ARIPiprazole 10 MG TABLET PO (07:25)
[2021-04-25] MEDS: Acetaminophen 325 MG TABLET 650 MG PO (07:25)
[2021-04-25] MEDS: Docusate Sodium 100 MG CAPSULE PO (07:26)
[2021-04-25] MEDS: Methylphenidate HCl 10 MG TABLET 30 MG PO (07:26)
[2021-04-25 08:04] LABS: MANUAL DIFF FLAG NO
--- NOTE | 2021-04-25 08:05 | P.PNOP_ITS ---
Subjective Subjective Date of Service: 04/25/21 Interval history: POD 1 s/p ORIF Right patella No overnight events Resting in bed with immobilizer intact Denies cp, sob, dizziness Physical Exam Vital Signs: Vital Signs: Last Vital Signs Temp 97.0 F 04/25/21 03:07 Pulse 78 04/25/21 03:07 Resp 16 04/25/21 03:07 BP 93/53 L 04/25/21 03:07 Pulse Ox 93 04/25/21 03:07 Body Mass Index 27.5 Const: General: cooperative, healthy appearing and no acute distress Resp: Effort & Inspection: normal respiratory effort and able to speak in complete sentences Cardio: Rate: regular rate Peripheral pulses: Peripheral pulses 2+ throughout GI: Palpation (GI): Soft to palpation Skin: General skin exam: no rashes or lesions noted Extrem: Other: Right knee bandage clean dry and intact. No erythema or joint effusion. Calf supple nontender. Neurovascularly intact. Progress Note: A&P Assessment and plan (1) Right patella fracture: Status: Acute Assessment and Plan: * Continue pain mgmnt * Begin Aspirin for dvt ppx * begin PT for RT ORIF patella. Toe-touch weight-bearing with knee in extension at all times. * Dispo planning-Pending PT eval, pain mgmnt Fall Risk Details Current Medications: Current Medications Generic Name Dose Route Start Last Admin Trade Name Freq PRN Reason Stop Dose Admin Acetaminophen 650 mg 04/23/21 20:13 04/25/21 07:25 Acetaminophen 325 Mg Tablet PO 650 mg Q6H PRN Administration Pain, Mild (Pain Scale 1-3) Aripiprazole 10 mg 04/24/21 16:00 04/25/21 07:25 Aripiprazole 10 Mg Tablet PO 10 mg DAILY JERILYN Administration Docusate Sodium 100 mg 04/23/21 20:13 04/25/21 07:26 Docusate Sodium 100 Mg Capsule PO 100 mg BID JERILYN Administration Fluoxetine HCl 60 mg 04/24/21 16:00 04/25/21 07:25 Fluoxetine Hcl 20 Mg Capsule PO 60 mg DAILY JERILYN Administration Lactated Ringer's 1,000 mls @ 50 mls/hr 04/24/21 10:30 04/25/21 04:23 Lr IVCONT 50 mls/hr .Q20H JERILYN Administration Methylphenidate HCl 10 mg 04/24/21 16:00 04/24/21 17:00 Methylphenidate Hcl 10 Mg Tablet PO 10 mg DAILY@1530 [facility] Administration Methylphenidate HCl 20 mg 04/25/21 12:00 Methylphenidate Hcl 10 Mg Tablet PO DAILY@1200 [facility] Methylphenidate HCl 30 mg 04/25/21 08:00 04/25/21 07:26 Methylphenidate Hcl 10 Mg Tablet PO 30 mg DAILY@0800 [facility] Administration Morphine Sulfate 2 mg 04/23/21 20:13 04/24/21 23:31 Morphine Sulfate 2 Mg/Ml Cartridge IVPUSH 2 mg Q2H PRN Administration Pain, Severe (Pain Scale 7-10) Naloxone HCl 0.2 mg 04/23/21 20:13 Naloxone Hcl 0.4 Mg/Ml Vial IVPUSH Q2M PRN Excessive sedation or RR < 8 Ondansetron HCl 4 mg 04/23/21 20:13 Ondansetron Hcl 4 Mg/2 Ml Vial IVPUSH Q8H PRN Nausea and Vomiting Oxycodone HCl 10 mg 04/23/21 20:13 04/25/21 07:25 Oxycodone Hcl Immed Release 5 Mg Tablet PO 10 mg Q6H [facility] Administration Sodium Chloride 3 ml 04/23/21 20:13 04/25/21 07:26 0.9 % Sodium Chloride Flush 3 Ml Syringe IVFLUSH Not Given QSHIFT [facility] Time Spent With Patient Time: Total time spent is greater than 50% in coordination of care (as documented) at patient's floor/unit and/or counseling patient: Time with patient: less than 15 minutes Procedures Date of Service Date of Service: 04/25/21
[2021-04-25 08:07] LABS: Basophils Percent Auto 0.1 % (0-2); Eosinophils Percent Auto 0.2 % (0-4); Hematocrit 38.6 % (37-47); Hemoglobin 12.7 g/dl (12.0-16.0); Imm Gran Abs Auto 0.02 X10*3/uL (0.00-0.03); Imm Gran Pct Auto 0.2 % (0.0-0.4); Lymphocytes Absolute Auto 2.1 X10*3/uL (1.2-4.9); Lymphocytes Percent Auto 17.8 % (20-40); Mean Corpuscular HGB Conc 32.9 g/dl (31.0-35.0); Mean Corpuscular Hemoglobin 33.8 pg (27.0-33.0); Mean Corpuscular Volume 102.7 fL (80-98); Mean Platelet Volume 10.3 fL (9.4-12.3); Monocytes Absolute Auto 0.9 X10*3/uL (0.1-1.2); Monocytes Percent Auto 7.6 % (2-11); Neutrophils Absolute Auto 8.8 X10*3/uL (2.0-8.3); Neutrophils Percent Auto 74.1 % (45-73); Platelet Count 237 X10*3/uL (160-400); Red Blood Count 3.76 X10*6/uL (4.20-5.50); Red Cell Distribution Width 13.1 % (11.0-16.0); White Blood Count 11.8 X10*3/uL (4.8-10.8)
[2021-04-25 08:35] LABS: Anion Gap 12 (12-20); Blood Urea Nitrogen 10 mg/dL (9-16); Calcium 9.2 mg/dL (8.4-10.2); Carbon Dioxide 29 mmol/L (22-29); Chloride 102 mmol/L (96-108); Creatinine Clr Calc Pharmacy 92.1; Estimated Glomerular Filt Rate > 60; Glucose Random 110 mg/dL (60-115); Potassium 4.2 mmol/L (3.3-5.1); Sodium 139 mmol/L (135-145)
--- NOTE | 2021-04-25 10:25 | HO.POSTANES ---
Post Anesthesia Evaluation Post Anesthesia Evaluation Vital Signs: Vital Signs Temp Pulse Resp BP Pulse Ox 04/25/21 08:24 78 93/53 L 93 04/25/21 08:00 97.3 F 89 17 112/58 L 98 04/25/21 03:07 97.0 F 78 16 93/53 L 93 04/24/21 23:28 76 16 101/55 L 96 Anesthesia: General LMA Mental Status: Awake Pain Control: Satisfactory Nausea/Vomiting: None Hydration: Adequate Anesthesia-Related Issues: No Anes. Related Issues
[2021-04-25] MEDS: Aspirin 325 MG TABLET PO ×2 (10:38→21:13)
[2021-04-25] MEDS: Morphine Sulfate 2 MG/ML CARTRIDGE IVPUSH ×5 (10:39→21:17)
[2021-04-25] MEDS: Methylphenidate HCl 10 MG TABLET 20 MG PO (12:10)
--- NOTE | 2021-04-25 12:52 | P.OP_ITS ---
Operative Note Operative Note Date of Service: 04/24/21 Narrative: OPERATIVE PROCEDURE NOTE SURGEON: Dr. Velez (Bernie) Instrum HEAD START DIRECTOR: Adamaris Finnegan PAC PREOP DIAGNOSIS: Comminuted transverse fracture patella right knee POSTOP DIAGNOSIS: Same OPERATIVE PROCEDURE: ORIF fractured right patella CLINICAL NOTE: This lady fell and injured her left knee suffering the above noted injury. After explaining the risks, benefits, alternatives of the surgery and answering all her questions, it was mutually agreed upon to carry out the following procedure. OPERATIVE PROCEDURE Under a general anesthetic the patient was placed supine on the operating table. Pneumatic tourniquet cuff was placed around the upper right thigh inflated to 300 mm of mercury. The right knee and leg were then prepped and draped in standard fashion. Surgical time-out was then performed. Patient was identified. Procedure confirmed. Site confirmed. Medical and allergy history were reviewed. Preoperative antibiotics were given. Standard DVT prophylaxis was in place. All other items were discussed and agreed upon. Standard midline incision to the knee was carried out. Taken down through subcutaneous tissues with hemostasis she has along the ways electrocautery. The joint was then entered through the fracture site and fracture hematoma was irrigated and suctioned out. The fracture was identified. The proximal side was fully intact. Was curetted clean of clot and the soft tissues elevated circumferentially. Distally on x-ray it was a comminuted piece but the soft tissues were holding it together. This similarly was curetted and the soft tissues elevated circumferentially around it. Closed reduction was then performed. Was checked on fluoroscopy. Was in acceptable position. Two parallel wires were inserted from distal to proximal. And following this the cerclage wire was placed. This was tight in and initially close the fracture. He was checked on fluoroscopy and was found to be in a good position. Because of the tenuous nature of the distal fragment a 3rd wire as it inserted on the lateral side. This reinforced the repair. The wires were all bent over and cut. Final check on AP lateral fluoroscopy demonstrated though there was a little including Compa to the fracture site it was acceptable and definitely in context of the condition of the distal fragment it was acceptable. Therefore we proceeded to closure. Wound was thoroughly irrigated skin was approximated using interrupted 2 Dexon skin was closed with gustavo. Intraoperatively there was approximately 20 cc of blood loss. No intraop transfusions or complications.
[2021-04-25] MEDS: Methylphenidate HCl 10 MG TABLET PO (15:39)
[2021-04-25] MEDS: Ketorolac Tromethamine 15 MG/ML VIAL IV (21:12)
[2021-04-26] VITALS: BP 127/56; PULSE 89; RESP 16; TEMP 36.2; O2SAT 94
[2021-04-26] MEDS: oxyCODONE HCl Immed Release 5 MG TABLET 10 MG PO ×3 (02:09→14:03)
[2021-04-26] MEDS: Ketorolac Tromethamine 15 MG/ML VIAL IV ×2 (03:45→09:41)
[2021-04-26 04:00] VITALS: BP 117/57; PULSE 93; RESP 16; TEMP 36.1; O2SAT 96
[2021-04-26 07:20] LABS: MANUAL DIFF FLAG NO
[2021-04-26 07:23] LABS: Basophils Percent Auto 0.4 % (0-2); Eosinophils Absolute Auto 0.2 X10*3/uL (0.0-0.4); Hemoglobin 11.4 g/dl (12.0-16.0); Imm Gran Abs Auto 0.03 X10*3/uL (0.00-0.03); Imm Gran Pct Auto 0.4 % (0.0-0.4); Lymphocytes Absolute Auto 2.7 X10*3/uL (1.2-4.9); Lymphocytes Percent Auto 32.2 % (20-40); Mean Corpuscular HGB Conc 32.6 g/dl (31.0-35.0); Mean Corpuscular Volume 104.5 fL (80-98); Mean Platelet Volume 10.2 fL (9.4-12.3); Monocytes Absolute Auto 0.8 X10*3/uL (0.1-1.2); Neutrophils Absolute Auto 4.8 X10*3/uL (2.0-8.3); Platelet Count 224 X10*3/uL (160-400); Red Blood Count 3.35 X10*6/uL (4.20-5.50); Red Cell Distribution Width 13.5 % (11.0-16.0); White Blood Count 8.5 X10*3/uL (4.8-10.8)
[2021-04-26 07:42] VITALS: BP 109/56; PULSE 75; RESP 17; TEMP 36.8; O2SAT 96
[2021-04-26 07:50] LABS: Anion Gap 10 (12-20); Blood Urea Nitrogen 15 mg/dL (9-16); Calcium 8.5 mg/dL (8.4-10.2); Carbon Dioxide 30 mmol/L (22-29); Chloride 105 mmol/L (96-108); Creatinine Clr Calc Pharmacy 90.7; Estimated Glomerular Filt Rate > 60; Glucose Random 90 mg/dL (60-115); Potassium 3.9 mmol/L (3.3-5.1); Sodium 141 mmol/L (135-145)
[2021-04-26] MEDS: ARIPiprazole 10 MG TABLET PO (08:01)
[2021-04-26] MEDS: Docusate Sodium 100 MG CAPSULE PO (08:01)
[2021-04-26] MEDS: Methylphenidate HCl 10 MG TABLET 30 MG PO (08:02)
[2021-04-26] MEDS: 0.9 % Sodium Chloride Flush 3 ML SYRINGE IVFLUSH (08:02)
[2021-04-26] MEDS: Aspirin 325 MG TABLET PO (08:02)
[2021-04-26] MEDS: FLUoxetine HCl 20 MG CAPSULE 60 MG PO (08:02)
[2021-04-26 10:47] VITALS: BP 109/56; PULSE 75
--- NOTE | 2021-04-26 10:59 | W.MHC.F2F ---
Service Date Service Date: 04/26/21 Reasons for Services Reason for physical therapy: home safety and mobility, therapeutic exercises, restore joint function, gait/transfer training and ADL training Reason for occupational therapy: home safety and mobility, therapeutic exercises, restore joint function, gait/transfer training, assess need for DME and ADL training MD Overseeing Care: Rosie Parker Homebound: Leaving the home is medically contraindicated at this time without the asist of a device and/or another person due th the listed conditions above and below. Reason homebound: unsteady gait / fall risk, leg weakness, pain with ambulation, poor balance / fall risk, non-weight bearing and unable to drive Homebound supporting statement: Pt. is considered home bound due to recent surgery. Unable to drive, poor balance, poor gait mechanics. Certification: Based on the above findings, I certify that this patient is confined to the home and needs intermittent fpc care, physical therapy and/or speech therapy, or continues to need occupational therapy. The patient is under my care, and I have initiated the establishment of the plan of care. The patient will be followed by a physician who will periodically review the plan of care.
--- NOTE | 2021-04-26 11:38 | MHC.CM.PN ---
PT DISCHARGING TODAY HOME W/[facility] FOR HOME OT/PT, PER [facility]ON PT INTAKE WILL BE DONE TOMORROW 04/27/21 AND PT WILL CONTACT PT BETWEEN 8:00 AND 9:00AM TO SET UP A TIME, ACTION FOR BLS TRANSPORT D/T UNHEALED PATELLA FX, NWB STATUS AND APT ON . PT/NURSING/ORTHO AWARE OF PT'S DISPOSITION.
[2021-04-26 12:00] VITALS: BP 105/53; PULSE 72; RESP 18; TEMP 36.6; O2SAT 96
[2021-04-26] MEDS: Methylphenidate HCl 10 MG TABLET 20 MG PO (12:05)
[2021-04-26] MEDS: Morphine Sulfate 2 MG/ML CARTRIDGE IVPUSH (12:05)
--- NOTE | 2021-04-26 14:15 | P.DS_ITS ---
DS: Providers Provider Date of Service: 04/26/21 Date of admission: 04/23/21 15:11 Primary care physician: Kyler Barber MD Consults: 04/23/21 20:13 Consult to Hospitalist Routine Consulting Provider: Hospitalist Reason For Exam: pre op clearance DS: Diagnosis Discharge Diagnosis (1) Right patella fracture: Status: Acute DS: Medications Discharge Medications Home Medications: Home Medications Medication Instructions Recorded Confirmed aripiprazole 10 mg PO DAILY 04/22/21 04/22/21 fluoxetine 60 mg PO DAILY 04/22/21 04/22/21 methylphenidate HCl 10 mg PO DAILY@1530 04/22/21 04/22/21 methylphenidate HCl 20 mg PO DAILY@1200 04/22/21 04/22/21 methylphenidate HCl 30 mg PO DAILY 04/22/21 04/22/21 multivitamin 1 tab PO DAILY 04/22/21 04/22/21 naproxen 500 mg PO BID PRN 04/22/21 04/22/21 trazodone 50 mg PO BEDTIME PRN 04/22/21 04/22/21 Previous Rx's Medication Instructions Recorded acetaminophen 650 mg PO Q6H PRN 30 Days #240 tab 04/26/21 aspirin 325 mg PO BID 14 Days #28 tab 04/26/21 docusate sodium 100 mg PO BID 14 Days #28 cap 04/26/21 oxycodone 10 mg PO Q4-6H 7 Days #42 tab 04/26/21 DS: Summary Hospital Course Hospital Course: Ms. Hernandez is a 60 yo female who presented to the ED after sustaining a fall resulting in a displaced right patella fracture. She was admitted to the Orthopedic service and booked for ORIF right patella. The patient underwent a successful ORIF right patella, she was transferred to PACU and then to the floor to recover. During their stay, their vitals were stable, afebrile at 97.9. Labs were unremarkable, H/H 11.4/35.0 . POD 1 she was started on ASA 325mg tabs bid for DVT ppx, they also received PT / OT services during their stay. Prior to discharge, bandage was clean dry and intact, brace intact and the plan is to discharge home with VNA services. Time Spent with Patient Time attestation: Total time spent providing and/or coordinating discharge services: Discharge coordination time: Less than 30 minutes Quality: Stroke Does the patient have a stroke diagnosis?: No Physical Exam Vital Signs: Vital Signs: Last Vital Signs Temp 97.9 F 04/26/21 12:00 Pulse 72 04/26/21 12:00 Resp 18 04/26/21 12:00 BP 105/53 L 04/26/21 12:00 Pulse Ox 96 04/26/21 12:00 Body Mass Index 27.5 Const: General: cooperative, healthy appearing and no acute distress Resp: Effort & Inspection: normal respiratory effort and able to speak in complete sentences Cardio: Rate: regular rate Peripheral pulses: Peripheral pulses 2+ throughout GI: Palpation (GI): Soft to palpation Skin: General skin exam: no rashes or lesions noted Extrem: Other: bandage clean dry and intact. No erythema or joint effusion. Calf supple nontender. Neurovascularly intact. DS: Data Data Completed and Pending Labs on day of discharge: Laboratory Results - last 24 hr 04/26/21 04/26/21 06:43 06:43 WBC 8.5 RBC 3.35 L Hgb 11.4 L Hct 35.0 L MCV 104.5 H MCH 34.0 H MCHC 32.6 RDW 13.5 Plt Count 224 MPV 10.2 Immature Gran % (Auto) 0.4 Neut % (Auto) 56.0 Lymph % (Auto) 32.2 [place] % (Auto) 9.0 Eos % (Auto) 2.0 Baso % (Auto) 0.4 Lymph # (Auto) 2.7 [place] # (Auto) 0.8 Eos # (Auto) 0.2 Baso # (Auto) 0.0 Abs Immat Gran (auto) 0.03 Absolute Neuts (auto) 4.8 Absolute Nucleated RBC 0.000 Nucleated RBC % (auto) 0.0 Sodium 141 Potassium 3.9 Chloride 105 Carbon Dioxide 30 H Anion Gap 10 L BUN 15 Creatinine 0.66 Estim Creat Clear Calc 90.7 Estimated GFR > 60 Random Glucose 90 Calcium 8.5 D Discharge Plan Discharge Patient Disposition: Home Health Service Discharge Diagnosis: s/p orif right patella Referrals: [facility] [Other] (BLS TRANSPORT) [facility] [Outside] - 1 Day (HOME OT/PT, PT INTAKE Wednesday04/27/21, PLEASE CALL ABOVE NUMBER IF YOU HAVE NOT HEARD FROM PHYSICAL THERAPIST BETWEEN 8:00-9:00AM PLANNED BY VIJI GRAHAM. ) Cameron Zamorano PA-C [Physician [employer]] - 2 Weeks Discharge Medications: New docusate sodium 100 mg Capsule 100 mg PO BID 14 Days Qty: 28 RF: 0 oxycodone 10 mg tablet 10 mg PO Q4-6H 7 Days Qty: 42 RF: 0 acetaminophen 325 mg Tablet 650 mg PO Q6H PRN (Reason: Pain, Mild (Pain Scale 1-3)) 30 Days Qty: 240 RF: 0 aspirin 325 mg Tablet 325 mg PO BID 14 Days Qty: 28 RF: 0 Continued methylphenidate HCl 10 mg tablet 10 mg PO DAILY@1530 RF: 0 methylphenidate HCl 20 mg tablet 20 mg PO DAILY@1200 RF: 0 methylphenidate HCl 30 mg capsule,ER biphasic 50-50 30 mg PO DAILY RF: 0 multivitamin Tablet 1 tab PO DAILY RF: 0 trazodone 50 mg tablet 50 mg PO BEDTIME PRN (Reason: insomnia) RF: 0 fluoxetine 20 mg capsule 60 mg PO DAILY RF: 0 naproxen 500 mg tablet 500 mg PO BID PRN (Reason: Pain) RF: 0 aripiprazole 10 mg tablet 10 mg PO DAILY RF: 0 Discharge Orders: Discharge Order (Routine); Ordered 04/26/21 Ordered By: Cameron Zamorano Diet: regular diet Activity on Discharge: Use cane or walker Stand Alone Forms: Patient Portal Discharge page Care Plan Goals: Restore function of joint Health Concerns: none Plan of Treatment: Physical Therapy Pain management DVT prophylaxis Assessment: * NWB x6 weeks * Knee immobilizer intact on at all times in extension * keep dressing clean, dry and intact * Continue anticoagulant * No tub bath or shower-Keep dressing clean, dry and intact * Follow up with orthopedics in 2 weeks
== END 2021-04-26 14:50 | disposition home health service (06) | DRG 320 ==
LOC: HO.ED 04-23 09:39 → HO.EDOVER 04-23 15:25 → HO.S3 04-23 18:40
PROVIDERS: Nurse Practitioner Family; Physician Assistant; Admitting Provider Orthopaedic Surgery; Emergency Provider Emergency Medicine; PCP Internal Medicine; Visit Provider Orthopaedic Surgery
PROC: (CPT 27524; principal; 2021-04-24 10:10)
DX: S82.031A Displaced transverse fracture of right patella, initial encounter for closed fracture (principal); F32.9 Major depressive disorder, single episode, unspecified; F17.210 Nicotine dependence, cigarettes, uncomplicated; F98.8 Other specified behavioral and emotional disorders with onset usually occurring in childhood and adolescence; Z71.6 Tobacco abuse counseling; W01.0XXA Fall on same level from slipping, tripping and stumbling without subsequent striking against object, initial encounter; Y93.9 Activity, unspecified; Y92.9 Unspecified place or not applicable; Y99.9 Unspecified external cause status; Z20.822 Contact with and (suspected) exposure to COVID-19; Z88.2 Allergy status to sulfonamides; Z79.1 Long term (current) use of non-steroidal anti-inflammatories (NSAID); Z79.899 Other long term (current) drug therapy
CPT/HCPCS: 36415; 73564; 80048; 85025; 85610; 86850; 86900; 86901; 87635; 93005; 96372; 97110; 97116; 97162; 97166; 99285; J0131; J0690; J1100; J1170; J1885; J2250; J2270; J2405; J3010

== ENCOUNTER 2021-05-13 07:52 | Outpatient (REF) | payer OTHER, SELFPAY ==
--- NOTE | ~2021-05-13 | XR_ITS ---
EXAMINATION: XR KNEE, RIGHT CLINICAL INFORMATION: Patella fracture COMPARISON: Previous x-ray most recent 04/22/2021 and fluoroscopy exam 04/24/2021 TECHNIQUE: 2 views of the right knee. FINDINGS: There is orthopedic hardware with 3 pins and cerclage wire seen in the patella. There is a comminuted displaced patellar fracture. Patella fracture appears more displaced than seen on post operative exam 04/24/2021 with 3 separate fracture fragments and 2 cm and 0.6 cm fracture fragment separation on the lateral view. There is a joint effusion. There are overlying skin gustavo. XR/XR knee RT 3V IMPRESSION: Increasing displacement of comminuted patellar fracture.
== END 2021-05-13 07:53 | disposition home or self-care (01) ==
LOC: HO.HOSX 07:52
PROVIDERS: Visit Provider Physician Assistant
DX: S82.001D Unspecified fracture of right patella, subsequent encounter for closed fracture with routine healing (principal)
CPT/HCPCS: 73562

== ENCOUNTER 2021-05-22 12:49 | Inpatient (IN) | payer OTHER, SELFPAY ==
--- NOTE | 2021-05-21 08:38 | HO.ANESPROP2 ---
Documented by User: Silvia Lisa 05/21/21 08:39 HPI - Anesthesia Eval Consult details Narrative: 60yo F for Right Patella ORIF,poss patella tendon repair s/p Patella ORIF 04/24/21 with GA-LMA 5 PMFSH Active Problems Active Problems: All Active Problems (Updated 04/22/21 @ 15:47 by Michelle Serna NP) Right patella fracture (Acute) Past Medical History Medical History ADD (attention deficit disorder) Depressed Migraines Surgical History Surgical History H/O right knee surgery Social History Social History Household Members: Children Housing: Apartment Do you presently have visiting nurse or other home services: No Patient Tobacco Use Status: Current everyday Tobacco user Tobacco use type: Cigarette Cigarette Packs Per Day: 0.5 Cigarettes Per Day: 15 Years Smoked: 49 Use of substances other than those prescribed or required for medical reasons: No Are you DNR?: No Advance Directives: No Advance Directives Information Provided: Yes service: No Current occupational status: employed Meds Allergies Allergy/AdvReac Type Severity Reaction Status Date / Time Sulfa (Sulfonamide Allergy Intermediate MOUTH Verified 05/13/21 13:00 Antibiotics) EXCORIATION [SULFA (SULFONAMIDE ANTIBIOTICS)] sulfamethoxazole Allergy Intermediate MOUTH RASH Verified 05/22/21 08:09 [From BACTRIM] trimethoprim [From BACTRIM] Allergy Intermediate MOUTH RASH Verified 05/22/21 08:09 Home Medications Medication Instructions Recorded Confirmed Last Taken Type aripiprazole 10 mg PO DAILY 04/22/21 04/22/21 04/21/21 History fluoxetine 60 mg PO DAILY 04/22/21 04/22/21 04/21/21 History methylphenidate HCl 10 mg PO DAILY@1530 04/22/21 04/22/21 04/21/21 History methylphenidate HCl 20 mg PO DAILY@1200 04/22/21 04/22/21 04/21/21 History methylphenidate HCl 30 mg PO DAILY 04/22/21 04/22/21 04/21/21 History multivitamin 1 tab PO DAILY 04/22/21 04/22/21 Unknown History naproxen 500 mg PO BID PRN 04/22/21 04/22/21 05/15/21 21:00 History trazodone 50 mg PO BEDTIME PRN 04/22/21 04/22/21 Unknown History Exam Exam Date and Time: May 21, 2021 0838 Pertinent Lab Results Pertinent Lab Results: Laboratory Tests 04/26/21 04/26/21 06:43 06:43 WBC 8.5 Hgb 11.4 L Hct 35.0 L Plt Count 224 Sodium 141 Potassium 3.9 Chloride 105 Carbon Dioxide 30 H BUN 15 Creatinine 0.66 Narrative Narrative: EKG 03/2021 Vent. Rate : 082 BPM Atrial Rate : 082 BPM P-R Int : 198 ms QRS Dur : 078 ms QT Int : 400 ms P-R-T Axes : 068 054 057 degrees QTc Int : 467 ms Normal sinus rhythm Possible Left atrial enlargement Borderline ECG When compared with ECG of 03-NOV-2016 15:02, No significant change was found Assessment and Plan Assessment Anesthesia Assessment: Chart Reviewed Documented by User: Rome Geiger MD 05/22/21 09:02 [facility] Past Medical History Medical History ADD (attention deficit disorder) Depressed Migraines Surgical History Surgical History H/O right knee surgery Social History Social History Household Members: Children Housing: Apartment Do you presently have visiting nurse or other home services: No Patient Tobacco Use Status: Current everyday Tobacco user Tobacco use type: Cigarette Cigarette Packs Per Day: 0.5 Cigarettes Per Day: 15 Years Smoked: 49 Use of substances other than those prescribed or required for medical reasons: No Are you DNR?: No Advance Directives: No Advance Directives Information Provided: Yes service: No Current occupational status: employed Meds Allergies Allergy/AdvReac Type Severity Reaction Status Date / Time Sulfa (Sulfonamide Allergy Intermediate MOUTH Verified 05/13/21 13:00 Antibiotics) EXCORIATION [SULFA (SULFONAMIDE ANTIBIOTICS)] sulfamethoxazole Allergy Intermediate MOUTH RASH Verified 05/22/21 08:09 [From BACTRIM] trimethoprim [From BACTRIM] Allergy Intermediate MOUTH RASH Verified 05/22/21 08:09 Home Medications Medication Instructions Recorded Confirmed Last Taken Type aripiprazole 10 mg PO DAILY 04/22/21 04/22/21 04/21/21 History fluoxetine 60 mg PO DAILY 04/22/21 04/22/21 04/21/21 History methylphenidate HCl 10 mg PO DAILY@1530 04/22/21 04/22/21 04/21/21 History methylphenidate HCl 20 mg PO DAILY@1200 04/22/21 04/22/21 04/21/21 History methylphenidate HCl 30 mg PO DAILY 04/22/21 04/22/21 04/21/21 History multivitamin 1 tab PO DAILY 04/22/21 04/22/21 Unknown History naproxen 500 mg PO BID PRN 04/22/21 04/22/21 05/15/21 21:00 History trazodone 50 mg PO BEDTIME PRN 04/22/21 04/22/21 Unknown History Exam Airway Mallampati Class: I TM Dist: >3cm Neck ROM: Full Loose/Missing/Broken Teeth: Yes Heart: RRRNL Assessment and Plan Assessment Anesthesia Assessment: Anesthesia Plan Discussed and Chart Reviewed Final Anesthetic Review NPO: Yes ASA Class: II Final Preanesthetic Review: No Changes in Pt Med Stat, Meds/Allgs Chart Reviewed, Consent Obtained/Reviewed and Anes Risks/Benef Reviewed Patient Risk: Low Procedure Risk: Low Anesthetic Plan Anesthetic Plan: GA Disposition: Standard PACU
[2021-05-22] VITALS (26 sets, daily range): BP systolic 94–176; BP diastolic 48–92; PULSE 66–94; RESP 14–20; TEMP 35.8–36.9; O2SAT 94–99; BMI 25.9
--- NOTE | ~2021-05-22 | FL_ITS ---
EXAMINATION: XR FLUOROSCOPY WITH IMAGES CLINICAL INFORMATION: Patellar fracture. COMPARISON: None. TECHNIQUE: Fluoroscopy performed by Dr. Rosie Parker. Fluoroscopy time: 0.3 minutes DAP: 0.0315 mGycm2 Images: 2 FINDINGS: There are AP and lateral images of the knee with patella in the OR. The AP view has sharp hemostats aligning the superior and inferior patella together. FL/FL guidance in OR IMPRESSION: Fluoroscopy was provided to Dr. Parker during surgery.
[2021-05-22] MEDS: Lactated Ringers 1,000 ML 100 ML IVCONT (08:40)
--- NOTE | 2021-05-22 09:50 | MHC.SHP ---
Pre-Procedural Eval Section A Date of Service: 05/22/21 The patient is an INPATIENT: No Changes since office visit: No Cold of Flu in the past 2 weeks, No New Medical Problems, No Changes in Medication and No Patient answered all questions The History & Physical has been completed within 30 days and I have reviewed it.: Yes Section B Chief Complaint: fx right patella Allergies: Allergies Allergy/AdvReac Type Severity Reaction Status Date / Time Sulfa (Sulfonamide Allergy Intermediate MOUTH Verified 05/13/21 13:00 Antibiotics) EXCORIATION [SULFA (SULFONAMIDE ANTIBIOTICS)] sulfamethoxazole Allergy Intermediate MOUTH RASH Verified 05/22/21 08:09 [From BACTRIM] trimethoprim [From BACTRIM] Allergy Intermediate MOUTH RASH Verified 05/22/21 08:09 Plan I have reviewed the history and physical and performed a pertinent physical examination on my patient. No changes have occurred unless specified.
[2021-05-22] MEDS: HYDROmorphone HCl 0.5 MG/0.5 ML SYRINGE IVPUSH ×4 (12:48→13:30)
[2021-05-22] MEDS: oxyCODONE HCl Immed Release 5 MG TABLET 10 MG PO ×3 (14:46→22:56)
[2021-05-22] MEDS: Morphine Sulfate 2 MG/ML CARTRIDGE IVPUSH ×3 (15:15→21:35)
[2021-05-22] MEDS: 0.9 % Sodium Chloride Flush 3 ML SYRINGE IVFLUSH (15:15)
--- NOTE | 2021-05-22 15:32 | P.CONIM_ITS ---
History of Present Illness Data of Consult Service Date: 05/22/21 Requesting physician: Rosie Parker Primary Care Provider: Kyler Barber MD HPI Reason for consult: Medical Management This is a 60 yo F with a no significant PMH who is admitted post-op orthopedic procedure. The patient endorses no medical history. Her only complaint is of pain at this time. Patient does not have any active medical issues at this time with the exception of some post-operative pain. Will defer post-operative pain mgmt to primary services. DVT pptx per primary services. WIll resume her baseline psych / mood medications Will sign off-- please re-consult if any issues arise. PMFSH Medical History ADD (attention deficit disorder) Depressed Migraines Surgical History H/O right knee surgery Social History Household Members: Children Housing: Apartment Do you presently have visiting nurse or other home services: No Patient Tobacco Use Status: Current everyday Tobacco user Tobacco use type: Cigarette Cigarette Packs Per Day: 0.5 Cigarettes Per Day: 15 Years Smoked: 49 Use of substances other than those prescribed or required for medical reasons: No Are you DNR?: No Advance Directives: No Advance Directives Information Provided: Yes service: No Current occupational status: employed Meds Allergies Allergy/AdvReac Type Severity Reaction Status Date / Time Sulfa (Sulfonamide Allergy Intermediate MOUTH Verified 05/13/21 13:00 Antibiotics) EXCORIATION [SULFA (SULFONAMIDE ANTIBIOTICS)] sulfamethoxazole Allergy Intermediate MOUTH RASH Verified 05/22/21 08:09 [From BACTRIM] trimethoprim [From BACTRIM] Allergy Intermediate MOUTH RASH Verified 05/22/21 08:09 Active Medications: Current Medications Generic Name Dose Route Start Last Admin Trade Name Freq PRN Reason Stop Dose Admin Acetaminophen 650 mg 05/22/21 12:53 Acetaminophen 325 Mg Tablet PO Q6H PRN Pain, Mild (Pain Scale 1-3) Albuterol Sulfate 2.5 mg 05/22/21 07:46 Albuterol Sulfate (0.083%) 2.5 Mg/3 Ml Vial.Neb INHALE ONCE PRN Shortness of Breath/Wheezing Lactated Ringer's 1,000 mls @ 100 mls/hr 05/22/21 08:00 05/22/21 14:24 Lr IVCONT Infused .Q10H JERILYN Infusion Cefazolin Sodium/Dextrose 2 gm in 50 mls @ 100 mls/hr 05/22/21 16:50 Ancef IV 05/22/21 17:19 POSTOP ONE Lactated Ringer's 1,000 mls @ 80 mls/hr 05/22/21 13:15 05/22/21 15:10 Lr IVCONT Not Given .[id number] JERILYN Morphine Sulfate 2 mg 05/22/21 12:58 05/22/21 15:15 Morphine Sulfate 2 Mg/Ml Cartridge IVPUSH 2 mg Q2H PRN Administration Pain, Severe (Pain Scale 7-10) Naloxone HCl 0.2 mg 05/22/21 12:58 Naloxone Hcl 0.4 Mg/Ml Vial IVPUSH Q2M PRN Excessive sedation or RR < 8 Ondansetron HCl 4 mg 05/22/21 12:43 Ondansetron Hcl 4 Mg/2 Ml Vial IVPUSH ONCE PRN Nausea and Vomiting Ondansetron HCl 4 mg 05/22/21 12:58 Ondansetron Hcl 4 Mg/2 Ml Vial IVPUSH Q8H PRN nausea Oxycodone HCl 5 mg 05/22/21 12:43 Oxycodone Hcl Immed Release 5 Mg Tablet PO ONCE PRN Pain, Severe (Pain Scale 7-10) Oxycodone HCl 10 mg 05/22/21 12:53 Oxycodone Hcl Immed Release 5 Mg Tablet PO Q4H PRN Pain, Moderate (Pain Scale 4-6 Senna 17.2 mg 05/22/21 21:00 Sennosides 8.6 Mg Tablet PO BEDTIME PRN Constipation Sodium Chloride 3 ml 05/22/21 16:00 05/22/21 15:15 0.9 % Sodium Chloride Flush 3 Ml Syringe IVFLUSH 3 ml QSHIFT [facility] Administration Home Medications Medication Instructions Recorded Confirmed Last Taken Type aripiprazole 10 mg PO DAILY 04/22/21 04/22/21 04/21/21 History fluoxetine 60 mg PO DAILY 04/22/21 04/22/21 04/21/21 History methylphenidate HCl 10 mg PO DAILY@1530 04/22/21 04/22/21 04/21/21 History methylphenidate HCl 20 mg PO DAILY@1200 04/22/21 04/22/21 04/21/21 History methylphenidate HCl 30 mg PO DAILY 04/22/21 04/22/21 04/21/21 History multivitamin 1 tab PO DAILY 04/22/21 04/22/21 Unknown History naproxen 500 mg PO BID PRN 04/22/21 04/22/21 05/15/21 21:00 History trazodone 50 mg PO BEDTIME PRN 04/22/21 04/22/21 Unknown History cholecalciferol (vitamin D3) 25 mcg PO BID 05/22/21 05/22/21 05/22/21 History Physical Exam Vital Signs and Narrative: Vital Signs: Last Vital Signs Temp 97.5 F 05/22/21 15:21 Pulse 66 05/22/21 15:21 Resp 15 05/22/21 15:21 BP 158/66 H 05/22/21 15:21 Pulse Ox 94 05/22/21 15:21 Body Mass Index 25.9
--- NOTE | 2021-05-22 16:09 | PHA.MEDREC ---
Pharmacy Consult ? Medication Reconciliation Pharmacy has completed the medication reconciliation.
[2021-05-22] MEDS: ceFAZolin Sodium/Dextrose,Iso 2 GM/50 ML PIGGYBACK IV (16:41)
[2021-05-22] MEDS: Methylphenidate HCl 10 MG TABLET 30 MG PO (16:41)
[2021-05-22] MEDS: Lactated Ringers 1,000 ML 80 ML IVCONT (18:42)
[2021-05-22] MEDS: Acetaminophen 325 MG TABLET 650 MG PO (19:00)
[2021-05-22] MEDS: Ketorolac Tromethamine 15 MG/ML VIAL IVPUSH (19:06)
[2021-05-23] VITALS (11 sets, daily range): BP systolic 102–118; BP diastolic 46–60; PULSE 66–88; RESP 15–18; TEMP 35.9–36.6; O2SAT 95–98
[2021-05-23] MEDS: 0.9 % Sodium Chloride Flush 3 ML SYRINGE IVFLUSH (00:38)
[2021-05-23] MEDS: Ketorolac Tromethamine 15 MG/ML VIAL IVPUSH ×4 (00:40→19:12)
[2021-05-23] MEDS: Morphine Sulfate 2 MG/ML CARTRIDGE IVPUSH ×3 (00:58→21:17)
[2021-05-23] MEDS: Lactated Ringers 1,000 ML 80 ML IVCONT ×2 (06:34→19:15)
--- NOTE | 2021-05-23 08:23 | P.PNOP_ITS ---
Subjective Subjective Date of Service: 05/23/21 Interval history: POD1 s/p left patella ORIF with Dr. Parker. The patient is resting in bed. She states that she is having difficulty with pain management. Cast is clen, dry, and intact. No overnight events. No additional complaints. Physical Exam Vital Signs: Vital Signs: Last Vital Signs Temp 97.4 F 05/23/21 07:32 Pulse 71 05/23/21 07:32 Resp 18 05/23/21 07:32 BP 102/56 L 05/23/21 07:32 Pulse Ox 98 05/23/21 07:32 Body Mass Index 25.9 Const: General: cooperative, healthy appearing and no acute distress Resp: Effort & Inspection: normal respiratory effort and able to speak in complete sentences Cardio: Rate: regular rate Peripheral pulses: Peripheral pulses 2+ throughout GI: Palpation (GI): Soft to palpation Skin: Lesions: no lesions Rashes: no rashes Extrem: Other: Right lower extremity: Patient is able to plantarflex and dorsiflex without difficulties. Sensation intact. Pedal pulse intact. Progress Note: A&P Assessment and plan (1) Right patella fracture: Status: Acute Assessment and Plan: Continue pain mgmnt Begin ASA for dvt ppx begin PT for Right patella ORIF; NWB RLE Dispo planning-Pending PT eval, pain mgmnt Fall Risk Details Current Medications: Current Medications Generic Name Dose Route Start Last Admin Trade Name Freq PRN Reason Stop Dose Admin Acetaminophen 650 mg 05/22/21 12:53 05/22/21 19:00 Acetaminophen 325 Mg Tablet PO 650 mg Q6H PRN Administration Pain, Mild (Pain Scale 1-3) Albuterol Sulfate 2.5 mg 05/22/21 07:46 Albuterol Sulfate (0.083%) 2.5 Mg/3 Ml Vial.Neb INHALE ONCE PRN Shortness of Breath/Wheezing Aripiprazole 10 mg 05/23/21 09:00 Aripiprazole 10 Mg Tablet PO DAILY JERILYN Fluoxetine HCl 60 mg 05/23/21 09:00 Fluoxetine Hcl 20 Mg Capsule PO DAILY JERILYN Lactated Ringer's 1,000 mls @ 80 mls/hr 05/22/21 13:15 05/23/21 06:34 Lr IVCONT 80 mls/hr .[id number] JERILYN Administration Ketorolac Tromethamine 15 mg 05/22/21 19:00 05/23/21 06:34 Ketorolac Tromethamine 15 Mg/Ml Vial IVPUSH 15 mg Q6H JERILYN Administration Methylphenidate HCl 30 mg 05/22/21 16:30 05/22/21 16:41 Methylphenidate Hcl 10 Mg Tablet PO 30 mg DAILY@1530 [facility] Administration Methylphenidate HCl 30 mg 05/23/21 12:00 Methylphenidate Hcl 10 Mg Tablet PO DAILY@1200 [facility] Methylphenidate HCl 40 mg 05/23/21 08:00 Methylphenidate Hcl 10 Mg Tablet PO DAILY@08 [facility] Morphine Sulfate 2 mg 05/22/21 12:58 05/23/21 00:58 Morphine Sulfate 2 Mg/Ml Cartridge IVPUSH 2 mg Q2H PRN Administration Pain, Severe (Pain Scale 7-10) Multivitamins/Vitamin C 1 tab 05/23/21 09:00 Multivitamin Tablet PO DAILY [facility] Naloxone HCl 0.2 mg 05/22/21 12:58 Naloxone Hcl 0.4 Mg/Ml Vial IVPUSH Q2M PRN Excessive sedation or RR < 8 Ondansetron HCl 4 mg 05/22/21 12:43 Ondansetron Hcl 4 Mg/2 Ml Vial IVPUSH ONCE PRN Nausea and Vomiting Ondansetron HCl 4 mg 05/22/21 12:58 Ondansetron Hcl 4 Mg/2 Ml Vial IVPUSH Q8H PRN nausea Oxycodone HCl 5 mg 05/22/21 12:43 Oxycodone Hcl Immed Release 5 Mg Tablet PO ONCE PRN Pain, Severe (Pain Scale 7-10) Oxycodone HCl 10 mg 05/22/21 12:53 05/22/21 22:56 Oxycodone Hcl Immed Release 5 Mg Tablet PO 10 mg Q4H PRN Administration Pain, Moderate (Pain Scale 4-6 Senna 17.2 mg 05/22/21 21:00 Sennosides 8.6 Mg Tablet PO BEDTIME PRN Constipation Sodium Chloride 3 ml 05/22/21 16:00 05/23/21 00:38 0.9 % Sodium Chloride Flush 3 Ml Syringe IVFLUSH 3 ml QSHIFT [facility] Administration Trazodone HCl 50 mg 05/22/21 15:45 Trazodone Hcl 50 Mg Tablet PO BEDTIME PRN insomnia Time Spent With Patient Time: Total time spent is greater than 50% in coordination of care (as documented) at patient's floor/unit and/or counseling patient: Time with patient: less than 15 minutes Procedures Date of Service Date of Service: 05/23/21 Quality Stroke Does the patient have a stroke diagnosis?: No VTE Prior VTE?: No VTE Risk Level:: Surgical - high VTE Device Contraindication: N/A - Device Ordered VTE Drug Contraindication: N/A - Med Ordered
[2021-05-23] MEDS: FLUoxetine HCl 20 MG CAPSULE 60 MG PO (08:37)
[2021-05-23] MEDS: Methylphenidate HCl 10 MG TABLET 40 MG PO (08:37)
[2021-05-23] MEDS: ARIPiprazole 10 MG TABLET PO (08:37)
[2021-05-23] MEDS: Multivitamin TABLET 1 TAB PO (08:37)
[2021-05-23] MEDS: oxyCODONE HCl Immed Release 5 MG TABLET 10 MG PO ×4 (10:09→23:06)
--- NOTE | 2021-05-23 10:30 | MHC.CM.PN ---
NURSE VEHICLE FUEL SYSTEMS CONVERTER NOTE ELECTRONIC MEDICAL RECORD REVIEWED ALONG WITH CASE DISCUSSED WITH STAFF NURSE MET WITH PATIENT SHE HAD BEEN HOME WITH NON WEIGHT BEARING ON HER L FOOT HER FAMILY HAS BEEN ASSISTING HER AT HOME ALONG WITH THE [facility] FOR PHYSICAL THERAPY SHE IS NOW POST OP DAY 1 FOR LEFT PATELLAR ORIF EVALUATED BY [facility] PHYSICAL AND OCCUPATIONAL THERAPY AND RECOMMENDING ACUTE REHAB PATIENT IS IN AGREEMENT WITH THIS HER FIRST CHOICE [facility]AN[facility], SHE HAD BEEN ACTIVE WITH THE [facility] FOR NSG AND HOME PHYSIVAL THEAPRY DISCHARGE PLAN - [facility]UTE [facility] FIRST CHOICE, JASMIN OR [facility] INIATED THESE REFERRALS PSOT D/C FROM REHAB RESUMPTION OF THE [facility] FOR PT/OT TRANSPORTATION [facility] HCP ON FILE AND UPLOADED TO [facility]
[2021-05-23 10:47] LABS: Hematocrit 39.9 % (37-47); Hemoglobin 13.1 g/dl (12.0-16.0)
[2021-05-23] MEDS: Aspirin 325 MG TABLET PO ×2 (12:05→21:14)
[2021-05-23] MEDS: Methylphenidate HCl 10 MG TABLET 30 MG PO ×2 (12:05→15:32)
[2021-05-24] VITALS (7 sets, daily range): BP systolic 106–125; BP diastolic 54–60; PULSE 70–85; RESP 12–18; TEMP 36.2–36.6; O2SAT 95–98
[2021-05-24] MEDS: Ketorolac Tromethamine 15 MG/ML VIAL IVPUSH ×4 (01:35→19:21)
[2021-05-24] MEDS: Morphine Sulfate 2 MG/ML CARTRIDGE IVPUSH ×3 (01:44→20:31)
[2021-05-24] MEDS: oxyCODONE HCl Immed Release 5 MG TABLET 10 MG PO ×3 (03:30→18:31)
[2021-05-24 06:53] LABS: MANUAL DIFF FLAG NO
[2021-05-24 07:07] LABS: Basophils Absolute Auto 0.1 X10*3/uL (0.0-0.2); Basophils Percent Auto 0.5 % (0-2); Eosinophils Absolute Auto 0.1 X10*3/uL (0.0-0.4); Eosinophils Percent Auto 1.3 % (0-4); Hemoglobin 11.7 g/dl (12.0-16.0); Imm Gran Abs Auto 0.04 X10*3/uL (0.00-0.03); Imm Gran Pct Auto 0.4 % (0.0-0.4); Lymphocytes Absolute Auto 2.7 X10*3/uL (1.2-4.9); Lymphocytes Percent Auto 28.6 % (20-40); Mean Corpuscular HGB Conc 31.6 g/dl (31.0-35.0); Mean Corpuscular Hemoglobin 32.7 pg (27.0-33.0); Mean Corpuscular Volume 103.4 fL (80-98); Mean Platelet Volume 9.6 fL (9.4-12.3); Monocytes Percent Auto 10.5 % (2-11); Neutrophils Absolute Auto 5.5 X10*3/uL (2.0-8.3); Neutrophils Percent Auto 58.7 % (45-73); Platelet Count 291 X10*3/uL (160-400); Red Blood Count 3.58 X10*6/uL (4.20-5.50); Red Cell Distribution Width 12.7 % (11.0-16.0); White Blood Count 9.4 X10*3/uL (4.8-10.8)
[2021-05-24 07:26] LABS: Anion Gap 12 (12-20); Blood Urea Nitrogen 11 mg/dL (9-16); Calcium 8.5 mg/dL (8.4-10.2); Carbon Dioxide 26 mmol/L (22-29); Chloride 105 mmol/L (96-108); Creatinine Clr Calc Pharmacy 98.8; Estimated Glomerular Filt Rate > 60; Glucose Random 79 mg/dL (60-115); Potassium 3.9 mmol/L (3.3-5.1); Sodium 139 mmol/L (135-145)
[2021-05-24] MEDS: Multivitamin TABLET 1 TAB PO (08:50)
[2021-05-24] MEDS: FLUoxetine HCl 20 MG CAPSULE 60 MG PO (08:50)
[2021-05-24] MEDS: Methylphenidate HCl 10 MG TABLET 40 MG PO (08:51)
[2021-05-24] MEDS: 0.9 % Sodium Chloride Flush 3 ML SYRINGE IVFLUSH (08:51)
[2021-05-24] MEDS: ARIPiprazole 10 MG TABLET PO (08:51)
[2021-05-24] MEDS: Aspirin 325 MG TABLET PO ×2 (08:52→20:32)
[2021-05-24] MEDS: Lactated Ringers 1,000 ML 80 ML IVCONT ×2 (09:01→19:23)
--- NOTE | 2021-05-24 12:05 | P.PNOP_ITS ---
Subjective Subjective Date of Service: 05/24/21 Interval history: POD2 s/p right patella ORIF with Dr. Coleman. Patient is resting comfortably in bed. No overnight events. Pain is managed. She c/o some burning at the ankle where the cast may be causing some irritation. Denies any SOB, chest pain, abd pain. Physical Exam Vital Signs: Vital Signs: Last Vital Signs Temp 97.4 F 05/24/21 08:00 Pulse 70 05/24/21 09:30 Resp 17 05/24/21 08:00 BP 113/56 L 05/24/21 09:30 Pulse Ox 97 05/24/21 09:30 Body Mass Index 25.9 Const: General: cooperative, healthy appearing and no acute distress Resp: Effort & Inspection: normal respiratory effort and able to speak in complete sentences Cardio: Rate: regular rate Peripheral pulses: Peripheral pulses 2+ throughout GI: Palpation (GI): Soft to palpation Skin: Lesions: no lesions Rashes: no rashes Extrem: Other: Right lower extremity cast is clean. dry, and intact. Skin at the groin and the ankle is intact with no abrasions. Patient is able to plantarflex and dorsiflex. Sensation intact. Pedal pulse intact. Progress Note: A&P Assessment and plan (1) Right patella fracture: Status: Acute Assessment and Plan: Continue pain mgmnt Continue ASA for dvt ppx Continue PT for Right patella ORIF; NWB RLE Dispo planning- pain mgmnt and rehab placement. Okay for d/c from orthopedic standpoint. Fall Risk Details Current Medications: Current Medications Generic Name Dose Route Start Last Admin Trade Name Etta PRN Reason Stop Dose Admin Acetaminophen 650 mg 05/22/21 12:53 05/22/21 19:00 Acetaminophen 325 Mg Tablet PO 650 mg Q6H PRN Administration Pain, Mild (Pain Scale 1-3) Albuterol Sulfate 2.5 mg 05/22/21 07:46 Albuterol Sulfate (0.083%) 2.5 Mg/3 Ml Vial.Neb INHALE ONCE PRN Shortness of Breath/Wheezing Aripiprazole 10 mg 05/23/21 09:00 05/24/21 08:51 Aripiprazole 10 Mg Tablet PO 10 mg DAILY JERILYN Administration Aspirin 325 mg 05/23/21 12:00 05/24/21 08:52 Aspirin 325 Mg Tablet PO 325 mg BID JERILYN Administration Fluoxetine HCl 60 mg 05/23/21 09:00 05/24/21 08:50 Fluoxetine Hcl 20 Mg Capsule PO 60 mg DAILY [facility] Administration Lactated Ringer's 1,000 mls @ 80 mls/hr 05/22/21 13:15 05/24/21 09:01 Lr IVCONT 80 mls/hr .[id number] JERILYN Administration Ketorolac Tromethamine 15 mg 05/22/21 19:00 05/24/21 08:51 Ketorolac Tromethamine 15 Mg/Ml Vial IVPUSH 15 mg Q6H JERILYN Administration Methylphenidate HCl 30 mg 05/22/21 16:30 05/23/21 15:32 Methylphenidate Hcl 10 Mg Tablet PO 30 mg DAILY@1530 [facility] Administration Methylphenidate HCl 30 mg 05/23/21 12:00 05/23/21 12:05 Methylphenidate Hcl 10 Mg Tablet PO 30 mg DAILY@1200 [facility] Administration Methylphenidate HCl 40 mg 05/23/21 08:00 05/24/21 08:51 Methylphenidate Hcl 10 Mg Tablet PO 40 mg DAILY@08 [facility] Administration Morphine Sulfate 2 mg 05/22/21 12:58 05/24/21 09:57 Morphine Sulfate 2 Mg/Ml Cartridge IVPUSH 2 mg Q2H PRN Administration Pain, Severe (Pain Scale 7-10) Multivitamins/Vitamin C 1 tab 05/23/21 09:00 05/24/21 08:50 Multivitamin Tablet PO 1 tab DAILY [facility] Administration Naloxone HCl 0.2 mg 05/22/21 12:58 Naloxone Hcl 0.4 Mg/Ml Vial IVPUSH Q2M PRN Excessive sedation or RR < 8 Ondansetron HCl 4 mg 05/22/21 12:43 Ondansetron Hcl 4 Mg/2 Ml Vial IVPUSH ONCE PRN Nausea and Vomiting Ondansetron HCl 4 mg 05/22/21 12:58 Ondansetron Hcl 4 Mg/2 Ml Vial IVPUSH Q8H PRN nausea Oxycodone HCl 5 mg 05/22/21 12:43 Oxycodone Hcl Immed Release 5 Mg Tablet PO ONCE PRN Pain, Severe (Pain Scale 7-10) Oxycodone HCl 10 mg 05/22/21 12:53 05/24/21 08:50 Oxycodone Hcl Immed Release 5 Mg Tablet PO 10 mg Q4H PRN Administration Pain, Moderate (Pain Scale 4-6 Senna 17.2 mg 05/22/21 21:00 Sennosides 8.6 Mg Tablet PO BEDTIME PRN Constipation Sodium Chloride 3 ml 05/22/21 16:00 05/24/21 08:51 0.9 % Sodium Chloride Flush 3 Ml Syringe IVFLUSH 3 ml QSHIFT JERILYN Administration Trazodone HCl 50 mg 05/22/21 15:45 Trazodone Hcl 50 Mg Tablet PO BEDTIME PRN insomnia Time Spent With Patient Time: Total time spent is greater than 50% in coordination of care (as doc umented) at patient's floor/unit and/or counseling patient: Time with patient: less than 15 minutes Procedures Date of Service Date of Service: 05/24/21 Quality Stroke Does the patient have a stroke diagnosis?: No VTE Prior VTE?: No VTE Risk Level:: Surgical - high VTE Device Contraindication: N/A - Device Ordered VTE Drug Contraindication: N/A - Med Ordered
[2021-05-24] MEDS: Methylphenidate HCl 10 MG TABLET 30 MG PO ×2 (12:12→16:06)
--- NOTE | 2021-05-24 14:23 | MHC.CM.PN ---
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 [place] , SHE CONFIRMED CLINICAL ACCEPTANCE AND CONFIRMED INS OLLIE MASTERSON FOR DISVHARGE FOR Wednesday05/25/21 TO BE TRANSPORTED [facility]IA [facility] ON 05/25/21 AT 11 AM
--- NOTE | 2021-05-24 15:17 | PM.DS ---
DS: Providers Provider Date of Service: 05/25/21 Date of admission: 05/22/21 12:49 Primary care physician: Kyler Barber MD Consults: 05/22/21 12:58 Consult to Hospitalist Stat Consulting Provider: Hospitalist Reason For Exam: medical management routine DS: Diagnosis Discharge Diagnosis (1) Right patella fracture: Status: Acute Problem details: Ms. Cherry is a 60 yo female who presented to the office s/p Patella ORIF on 04/25/[address] Parker after sustaining a fall. The patient presented to the office for her routine post operative follow-up where x-rays were obtained and revealed her patella fracture had further displaced with the hardware remaining intact. It was discussed with the patient and Dr. Parker that the patient would have to undergo a second patella ORIF with removal of remaining hardware on 05/21/[address] Parker. DS: Medications Discharge Medications Home Medications: Home Medications Medication Instructions Recorded Confirmed aripiprazole 10 mg PO DAILY 04/22/21 05/22/21 fluoxetine 60 mg PO DAILY 04/22/21 05/22/21 methylphenidate HCl 30 mg PO DAILY@08 04/22/21 05/22/21 methylphenidate HCl 30 mg PO DAILY@1200 04/22/21 05/22/21 methylphenidate HCl 30 mg PO DAILY@1530 04/22/21 05/22/21 multivitamin 1 tab PO DAILY 04/22/21 05/22/21 naproxen 500 mg PO BID PRN 04/22/21 05/22/21 trazodone 50 mg PO BEDTIME PRN 04/22/21 05/22/21 cholecalciferol (vitamin D3) 25 mcg PO BID 05/22/21 05/22/21 Previous Rx's Medication Instructions Recorded acetaminophen 650 mg PO Q6H PRN 30 Days #240 tab 04/26/21 aspirin 325 mg PO BID 14 Days #28 tab 04/26/21 oxycodone 10 mg tablet 10 mg PO Q6H 7 Days #28 tab 05/21/21 oxycodone 10 mg PO Q4H PRN 7 Days #42 tab 05/23/21 DS: Summary Hospital Course Hospital Course: The patient underwent a successful right patella ORIF, they were transferred to PACU and then to the floor to recover. During their stay, their vitals were stable, afebrile at 97.1. Labs were unremarkable, H/H 11.7/37.0. POD 1 they were started on Aspirin 325mg po bid for DVT ppx, they also received Physical Therapy services. Prior to discharge, their cast was reinforced with foam tape to help avoid skin irritation and breakdown and the plan was to be discharged to a rehab facility. Time Spent with Patient Time attestation: Total time spent providing and/or coordinating discharge services: Discharge coordination time: Less than 30 minutes Quality: Stroke Does the patient have a stroke diagnosis?: No Physical Exam Vital Signs: Vital Signs: Last Vital Signs Temp 97.1 F 05/24/21 12:00 Pulse 73 05/24/21 12:00 Resp 18 05/24/21 12:00 BP 125/60 05/24/21 12:00 Pulse Ox 97 05/24/21 12:00 Body Mass Index 25.9 Const: General: cooperative, healthy appearing and no acute distress Resp: Effort & Inspection: normal respiratory effort and able to speak in complete sentences Cardio: Rate: regular rate Peripheral pulses: Peripheral pulses 2+ throughout GI: Palpation (GI): Soft to palpation Skin: Lesions: no lesions Rashes: no rashes Extrem: Other: Right lower extremity cast reamins intact, dry, and clean. No ecchymosis or redness. No skin breakdown at either end of the cast. Patient is able to plantarflex and dorsiflex. Sensation intact. Pedal pulse intact. DS: Data Data Completed and Pending Completed studies during hospitalization [Text1]: Procedures Reposition Right Patella with Internal Fixation Device, Open Approach (04/23/21) Labs on day of discharge: Laboratory Results - last 24 hr 05/24/21 05/24/21 06:20 06:20 WBC 9.4 RBC 3.58 L Hgb 11.7 L Hct 37.0 MCV 103.4 H MCH 32.7 MCHC 31.6 RDW 12.7 Plt Count 291 D MPV 9.6 Immature Gran % (Auto) 0.4 Neut % (Auto) 58.7 Lymph % (Auto) 28.6 [place] % (Auto) 10.5 Eos % (Auto) 1.3 Baso % (Auto) 0.5 Lymph # (Auto) 2.7 [place] # (Auto) 1.0 Eos # (Auto) 0.1 Baso # (Auto) 0.1 Abs Immat Gran (auto) 0.04 H Absolute Neuts (auto) 5.5 Absolute Nucleated RBC 0.000 Nucleated RBC % (auto) 0.0 Sodium 139 Potassium 3.9 Chloride 105 Carbon Dioxide 26 Anion Gap 12 BUN 11 Creatinine 0.59 Estim Creat Clear Calc 98.8 Estimated GFR > 60 Random Glucose 79 Calcium 8.5 Discharge Plan Discharge Patient Disposition: Xfer [facility] Discharge Diagnosis: right patella ORIF Referrals: [facility] [Other] - 1 Week (DISCHARG[facility] TO [facility] TO [facility]) Kyler Barber MD [Primary Care Provider] - 1 Week Discharge Medications: New oxycodone 10 mg tablet 10 mg PO Q4H PRN (Reason: Pain, Moderate (Pain Scale 4-6) 7 Days Qty: 42 RF: 0 Continued methylphenidate HCl 10 mg tablet 30 mg PO DAILY@1530 RF: 0 methylphenidate HCl 20 mg tablet 30 mg PO DAILY@1200 RF: 0 methylphenidate HCl 30 mg capsule,ER biphasic 50-50 30 mg PO DAILY@08 RF: 0 multivitamin Tablet 1 tab PO DAILY RF: 0 trazodone 50 mg tablet 50 mg PO BEDTIME PRN (Reason: insomnia) RF: 0 fluoxetine 20 mg capsule 60 mg PO DAILY RF: 0 aripiprazole 10 mg tablet 10 mg PO DAILY RF: 0 acetaminophen 325 mg Tablet 650 mg PO Q6H PRN (Reason: Pain, Mild (Pain Scale 1-3)) 30 Days Qty: 240 RF: 0 aspirin 325 mg Tablet 325 mg PO BID 14 Days Qty: 28 RF: 0 cholecalciferol (vitamin D3) 25 mcg (1,000 unit) Tablet 25 mcg PO BID RF: 0 Discontinued oxycodone 10 mg tablet 10 mg PO Q6H 7 Days Qty: 28 RF: 0 naproxen 500 mg tablet 500 mg PO BID PRN (Reason: Pain) RF: 0 Discharge Orders: Discharge Order (Routine); Ordered 05/25/21 Ordered By: Adamaris Finnegan Diet: regular diet Activity on Discharge: Use cane or walker Stand Alone Forms: Patient Portal Discharge page Care Plan Goals: Restore function to right knee s/p patella ORIF Health Concerns: None Plan of Treatment: NWB Keep cast clean, dry, and intact ?> If any difficulties or concerns call orthopedics P.T. to assit with gait training and safe transfers Followup with orthopedics in 2 weeks Call orthopedics with any questions or concerns Assessment: Stable for transfer to rehab
--- NOTE | 2021-05-24 15:30 | PC.NURSE ---
1200 c/o irritation at posterior ankle from cast. TABATHA Bailon in and wrapped tape around ankle Good pain relief per patient. Remains NWB Cast intact on right LE. Elevated while OOB
[2021-05-25] VITALS: BP 107/57; PULSE 70; RESP 16; TEMP 36; O2SAT 95
[2021-05-25] MEDS: Morphine Sulfate 2 MG/ML CARTRIDGE IVPUSH ×2 (00:33→03:08)
[2021-05-25] MEDS: Ketorolac Tromethamine 15 MG/ML VIAL IVPUSH ×2 (01:07→07:36)
[2021-05-25 04:00] VITALS: BP 127/62; PULSE 68; RESP 16; TEMP 36.2; O2SAT 95
[2021-05-25 06:27] LABS: MANUAL DIFF FLAG NO
[2021-05-25 06:48] LABS: Basophils Absolute Auto 0.1 X10*3/uL (0.0-0.2); Basophils Percent Auto 0.8 % (0-2); Eosinophils Absolute Auto 0.3 X10*3/uL (0.0-0.4); Eosinophils Percent Auto 3.8 % (0-4); Hemoglobin 11.8 g/dl (12.0-16.0); Imm Gran Abs Auto 0.02 X10*3/uL (0.00-0.03); Imm Gran Pct Auto 0.3 % (0.0-0.4); Lymphocytes Absolute Auto 2.3 X10*3/uL (1.2-4.9); Lymphocytes Percent Auto 35.2 % (20-40); Mean Corpuscular HGB Conc 31.9 g/dl (31.0-35.0); Mean Corpuscular Hemoglobin 32.9 pg (27.0-33.0); Mean Corpuscular Volume 103.1 fL (80-98); Mean Platelet Volume 9.6 fL (9.4-12.3); Monocytes Absolute Auto 0.7 X10*3/uL (0.1-1.2); Monocytes Percent Auto 11.2 % (2-11); Neutrophils Absolute Auto 3.2 X10*3/uL (2.0-8.3); Neutrophils Percent Auto 48.7 % (45-73); Platelet Count 297 X10*3/uL (160-400); Red Blood Count 3.59 X10*6/uL (4.20-5.50); Red Cell Distribution Width 12.8 % (11.0-16.0); White Blood Count 6.5 X10*3/uL (4.8-10.8)
[2021-05-25 06:55] LABS: Anion Gap 10 (12-20); Blood Urea Nitrogen 11 mg/dL (9-16); Calcium 8.8 mg/dL (8.4-10.2); Carbon Dioxide 28 mmol/L (22-29); Chloride 106 mmol/L (96-108); Estimated Glomerular Filt Rate > 60; Glucose Random 80 mg/dL (60-115); Potassium 4.3 mmol/L (3.3-5.1); Sodium 140 mmol/L (135-145)
[2021-05-25 07:34] VITALS: BP 120/60; PULSE 71; RESP 17; TEMP 36.2; O2SAT 100
[2021-05-25] MEDS: FLUoxetine HCl 20 MG CAPSULE 60 MG PO (07:37)
[2021-05-25] MEDS: Aspirin 325 MG TABLET PO (07:37)
[2021-05-25] MEDS: oxyCODONE HCl Immed Release 5 MG TABLET 10 MG PO (07:38)
[2021-05-25] MEDS: Multivitamin TABLET 1 TAB PO (07:39)
[2021-05-25] MEDS: ARIPiprazole 10 MG TABLET PO (07:39)
[2021-05-25] MEDS: Methylphenidate HCl 10 MG TABLET 40 MG PO (07:39)
--- NOTE | 2021-05-25 09:22 | MHC.CM.PN ---
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
[2021-05-25] MEDS: Methylphenidate HCl 10 MG TABLET 30 MG PO (11:00)
--- NOTE | 2021-05-27 09:52 | P.OP_ITS ---
Operative Note Operative Note Date of Service: 05/22/21 Narrative: OPERATIVE PROCEDURE NOTE SURGEON: Dr. Velez (Bernie) [employer] SAL[employer] APPOINTMENT COORDINATOR: Adamaris Finnegan PAC PREOP DIAGNOSIS: Loss of fixation fracture right patella POSTOP DIAGNOSIS: same OPERATIVE PROCEDURE: operative fixation right patella CLINICAL NOTE: this lady returns regards to her fracture right patella. At the time original injury she had comminution to the bony segments. It was fixed and held. However unfortunately in the intervening time frame the hardware has failed a whole the situation appropriately with activity that had been done at home. Therefore after explaining the risks benefits and alternatives and answered all her questions which agreed upon to carry following procedure OPERATIVE PROCEDURE: under a general and regional anesthetic, the patient placed supine on the operating table. Pneumatic tourniquet cuff was placed around the upper right thigh inflated to 300 mm of mercury at beginning in the case.The right leg was then prepped and draped in standard fashion. Surgical time-out was then performed. The patient is identified. Procedure confirmed. Site confirmed. Medical and allergy history were reviewed. Preoperative antibiotics were given. All other items were discussed and agreed upon. Standard midline incision to the knee was carried out through the old incision. This brought us down to the level of the patella. The soft tissues elevated with full-thickness flaps both medially and laterally. Immediately the hardware including the 3 pins and the cerclage wire were removed. The fracture was again identified. Fracture clot was cleared from within this site as well as in the knee itself. Inspection was then made of the situation. The proximal segment had a comminuted piece with the largest being the superolateral portion but there were 2 pieces medially. In the inferior portion the bone was comminuted into 3 or 4 pieces. A decision was made that it was not going to be possible put any hardware that would actually hold anything. The proximal bone fragments were sutured through bone together with FiberWire 2. Similarly the pieces distally were approximated using FiberWire as well. Following this a large 2. FiberWire was weaved through the distal segment incorporating both the tendon bone times to bring for tails proximally towards the proximal segment. In the proximal segment 3 drill holes were then may and a suture Passer was then used to bring the sutures from the distal segment through the proximal segment to the superior pole of the patella. the bony fragments were then all brought together and held with the sutures being tied down in order to secure this. Imaging on fluoroscopy at this point demonstrate though it was not perfect that the bony segments were together and the most proximal segment was now distal enough to be appropriate. At this point multiple sutures of 2. FiberWire were then used in order to reinforce the repair both medially and laterally. At this point it was determined that there was nothing further that could be done and therefore proceeded to closure. The wound was thoroughly irrigated. The skin was approximated using interrupted with 2-0 Polysorb. The skin was closed with gustavo. A sterile dressing was then applied. The tourniquet was let down total tourniquet time 57 minutes. At this point a still pipe long leg cast with the knee in extension was placed with ample padding and fit. Following this the patient's anesthesia was reversed. They were transferred supine to the room bed then taken to the recovery room in good condition. Intraoperatively there was approximately 50 cc of blood loss. No intraop complications.
== END 2021-05-25 11:32 | disposition skilled nursing facility (03) | DRG 313 ==
LOC: HO.SSSA 13:27 → HO.S3 13:33
PROVIDERS: Physician Assistant; Admitting Provider Orthopaedic Surgery; PCP Internal Medicine; Visit Provider Orthopaedic Surgery
PROC: 0QUD0JZ Supplement Right Patella with Synthetic Substitute, Open Approach (ICD-10-PCS; CPT 27524; principal; 2021-05-22 10:10)
DX: T84.498A Other mechanical complication of other internal orthopedic devices, implants and grafts, initial encounter (principal); S82.001A Unspecified fracture of right patella, initial encounter for closed fracture; X58.XXXA Exposure to other specified factors, initial encounter; F17.210 Nicotine dependence, cigarettes, uncomplicated; Z71.6 Tobacco abuse counseling; Z88.2 Allergy status to sulfonamides; Z79.899 Other long term (current) drug therapy
CPT/HCPCS: 36415; 80048; 85014; 85018; 85025; 97110; 97162; 97166; J0690; J1100; J1170; J1885; J2250; J2270; J2405; J3010

== ENCOUNTER → 2021-06-03 13:18 | Outpatient (BNVA) | payer OTHER, SELFPAY | PROVIDERS: PCP Internal Medicine; Visit Provider Orthopaedic Surgery ==

== ENCOUNTER 2021-07-01 13:02 | Outpatient (REF) | payer OTHER, SELFPAY ==
--- NOTE | ~2021-07-01 | XR_ITS ---
EXAMINATION: XR KNEE, RIGHT CLINICAL INFORMATION: Pain right knee COMPARISON: Right knee 05/13/2021 TECHNIQUE: Single view of the right knee. FINDINGS: The lateral view of the right knee reveals multiple pins traversing the fractured radius have been removed. Anterior skin gustavo have been removed. There is a nonhealed mid patellar fracture which appears . XR/XR knee RT 2V IMPRESSION: Nonhealed mildly old patellar fracture. There is mild anterior soft tissue swelling.
== END 2021-07-01 13:03 | disposition home or self-care (01) ==
LOC: HO.HOSX 13:02
PROVIDERS: Visit Provider Orthopaedic Surgery
DX: S82.001D Unspecified fracture of right patella, subsequent encounter for closed fracture with routine healing (principal)
CPT/HCPCS: 29345; 73560

== ENCOUNTER 2021-08-07 13:24 | Outpatient (REF) | payer OTHER, SELFPAY ==
--- NOTE | ~2021-08-07 | XR_ITS ---
EXAMINATION: XR KNEE, RIGHT CLINICAL INFORMATION: Patella fracture. COMPARISON: Radiographs right knee 07/01/2021, 05/13/2021, 04/22/2021 TECHNIQUE: Single crosstable lateral projection of the right knee is performed. FINDINGS: There is a chronic patellar fracture at mid aspect. The fragment distraction is decreased with knee in extension when compared with prior exams. There is no effusion. No acute bony abnormality. XR/XR knee RT 1V IMPRESSION: Chronic mid patellar fracture. Distraction decreased with knee in extension. No effusion.
== END 2021-08-07 13:25 | disposition home or self-care (01) ==
LOC: HO.HOSX 13:24
PROVIDERS: Visit Provider Physician Assistant
DX: S82.001A Unspecified fracture of right patella, initial encounter for closed fracture (principal); Z98.890 Other specified postprocedural states; Z87.81 Personal history of (healed) traumatic fracture
CPT/HCPCS: 73560

== ENCOUNTER 2021-08-21 08:35 | Outpatient (REF) | payer OTHER, SELFPAY ==
--- NOTE | ~2021-08-21 | XR_ITS ---
EXAMINATION: XR KNEE, RIGHT CLINICAL INFORMATION: Pain in unspecified knee COMPARISON: Prior radiographs of the right knee, most recently 08/07/2021 TECHNIQUE: AP and lateral radiographs of the right knee. FINDINGS: Redemonstration of chronic patellar fracture which is unchanged from the prior study. No change in orientation of the fracture fragments. No new fractures identified. The knee remains in alignment and joint spaces are preserved. Soft tissues are unremarkable. No joint effusion. XR/XR knee RT 2V IMPRESSION: Stable appearance of old patellar fracture.
== END 2021-08-21 08:36 | disposition home or self-care (01) ==
LOC: HO.HOSX 08:35
PROVIDERS: Visit Provider Physician Assistant
DX: S82.001D Unspecified fracture of right patella, subsequent encounter for closed fracture with routine healing (principal); Z98.890 Other specified postprocedural states; Z87.81 Personal history of (healed) traumatic fracture
CPT/HCPCS: 73560

== ENCOUNTER → 2021-08-29 07:44 | Outpatient (BNVA) | payer OTHER, SELFPAY | PROVIDERS: PCP Internal Medicine; Visit Provider Internal Medicine ==

== ENCOUNTER → 2021-09-05 09:32 | Outpatient (BNVA) | payer OTHER, SELFPAY | PROVIDERS: PCP Internal Medicine; Visit Provider Internal Medicine ==

== ENCOUNTER 2021-09-18 08:29 | Outpatient (REF) | payer OTHER, SELFPAY ==
--- NOTE | ~2021-09-18 | XR_ITS ---
EXAMINATION: XR KNEE, RIGHT CLINICAL INFORMATION: Right knee pain. COMPARISON: Right knee radiographs dated 08/21/2021 TECHNIQUE: AP and lateral views of the right knee. FINDINGS: Chronic mid/inferior patellar fracture in unchanged anatomic alignment. Associated patella carri is unchanged. No acute fracture. No joint space narrowing or marginal osteophytes. No osseous erosion. No joint effusion. XR/XR knee RT 2V IMPRESSION: Chronic patellar fracture in unchanged anatomic alignment.
== END 2021-09-18 08:30 | disposition home or self-care (01) ==
LOC: HO.HOSX 08:29
PROVIDERS: Visit Provider Physician Assistant
DX: Z98.890 Other specified postprocedural states (principal); Z87.81 Personal history of (healed) traumatic fracture
CPT/HCPCS: 73560

== ENCOUNTER → 2021-09-22 10:54 | Outpatient (BNVA) | payer OTHER, SELFPAY | PROVIDERS: PCP Internal Medicine; Visit Provider Internal Medicine ==

== ENCOUNTER 2021-10-01 | Outpatient (RCR) | payer OTHER, SELFPAY | END 2021-11-12 15:20 | disposition home or self-care (01) | LOC: HO.WCC | PROVIDERS: PCP Internal Medicine; Visit Provider Surgery | DX: L89.893 Pressure ulcer of other site, stage 3 (principal); L89.619 Pressure ulcer of right heel, unspecified stage; F17.200 Nicotine dependence, unspecified, uncomplicated; Z79.899 Other long term (current) drug therapy | CPT/HCPCS: 11042; 99212 ==

== ENCOUNTER 2021-10-15 06:35 | Outpatient (REF) | payer OTHER, SELFPAY ==
--- NOTE | ~2021-10-15 | FL_ITS ---
EXAMINATION: XR FLUOROSCOPY WITH IMAGES CLINICAL INFORMATION: Knee pain COMPARISON: Previous x-ray most recent 08/07/2021 TECHNIQUE: Fluoroscopy performed by Dr Beaver Fluoroscopy time: 0.2 minutes DAP: 0.5 Gycm2 Images: 3 FINDINGS: Images demonstrate needle placement adjacent to the bilateral lower femoral shaft and proximal medial tibia. There is an old patella fracture. FL/FL guidance in treatment room IMPRESSION: Fluoroscopy guidance for pain management procedure.
== END 2021-10-15 06:36 | disposition home or self-care (01) ==
LOC: HO.RADIR 06:35
PROVIDERS: Visit Provider Internal Medicine
DX: M25.561 Pain in right knee (principal)
CPT/HCPCS: 64450

== ENCOUNTER 2021-10-16 08:49 | Outpatient (REF) | payer OTHER, SELFPAY | END 2021-10-16 08:50 | disposition home or self-care (01) | LOC: HO.HOSX 08:49 | PROVIDERS: Visit Provider Physician Assistant | DX: Z13.89 Encounter for screening for other disorder (principal) ==

== ENCOUNTER 2021-10-21 06:36 | Day surgery (SDC) | payer OTHER, SELFPAY ==
--- NOTE | 2021-10-20 08:18 | HO.ANESPROP2 ---
Documented by User: Silvia Gonzalez NP 10/20/21 08:19 HPI - Anesthesia Eval Consult details Narrative: 61yo F for Right Knee Arthroscopy, Knee Manipulation s/p R patella ORIF 04/2021 with GETA-7 PMFSH Active Problems Active Problems: All Active Problems (Updated 09/29/21 @ 12:51 by Adamaris Finnegan PA-C) Pressure ulcer (Acute) Right knee pain (Acute) Muscle spasm of right lower extremity (Acute) Status post open reduction and internal fixation (ORIF) of fracture (Acute) Right patella fracture (Acute) Past Medical History Medical History ADD (attention deficit disorder) Depressed Migraines Right knee pain Surgical History Surgical History H/O right knee surgery Social History Social History Household Members: Children Housing: Apartment Do you presently have visiting nurse or other home services: No Patient Tobacco Use Status: Current everyday Tobacco user Tobacco use type: Cigarette Cigarette Packs Per Day: 0.5 Cigarettes Per Day: 15 Years Smoked: 49 Second Hand Smoke Exposure: No Use of substances other than those prescribed or required for medical reasons: No Are you DNR?: No Advance Directives: No Advance Directives Information Provided: Yes Advance Directives on File: No service: No Current occupational status: employed Meds Allergies Allergy/AdvReac Type Severity Reaction Status Date / Time Sulfa (Sulfonamide Allergy Intermediate MOUTH Verified 10/16/21 13:13 Antibiotics) EXCORIATION [SULFA (SULFONAMIDE ANTIBIOTICS)] Home Medications Medication Instructions Recorded Confirmed Last Taken Type fluoxetine 20 mg capsule 60 mg PO DAILY 04/22/21 10/15/21 05/22/21 History methylphenidate HCl 10 mg tablet 30 mg PO DAILY@1530 04/22/21 10/15/21 05/21/21 History methylphenidate HCl 20 mg tablet 30 mg PO DAILY@1200 04/22/21 10/15/21 05/21/21 History methylphenidate HCl 30 mg biphasic 30 mg PO DAILY@08 04/22/21 10/15/21 05/22/21 History 50-50 capsule,extended release multivitamin 1 tab PO DAILY 04/22/21 10/15/21 05/22/21 History trazodone 50 mg tablet 50 mg PO BEDTIME PRN 04/22/21 10/15/21 Unknown History cholecalciferol (vitamin D3) 25 25 mcg PO BID 05/22/21 10/15/21 05/22/21 History mcg (1,000 unit) tablet aripiprazole 2 mg tablet (Abilify) 2 mg PO DAILY 08/29/21 10/15/21 Unknown History naproxen 500 mg tablet 500 mg PO BID 09/22/21 10/15/21 Unknown History Exam Exam Date and Time: October 20, 2021 0818 Pertinent Lab Results Pertinent Lab Results: Laboratory Tests 05/25/21 05/25/21 05:57 05:57 WBC 6.5 Hgb 11.8 L Hct 37.0 Plt Count 297 Sodium 140 Potassium 4.3 Chloride 106 Carbon Dioxide 28 BUN 11 Creatinine 0.64 Narrative Narrative: EKG 03/2021 Vent. Rate : 082 BPM ? ? Atrial Rate : 082 BPM ?? P-R Int : 198 ms? QRS Dur : 078 ms ? ? QT Int : 400 ms ? ? ? P-R-T Axes : 068 054 057 degrees ?? QTc Int : 467 ms ? Normal sinus rhythm Possible Left atrial enlargement Borderline ECG When compared with ECG of 03-NOV-2016 15:02, No significant change was found Assessment and Plan Assessment Anesthesia Assessment: Chart Reviewed Documented by User: Rome Geiger MD 10/21/21 09:24 [facility] Past Medical History Medical History ADD (attention deficit disorder) Depressed Migraines Right knee pain Family History Family history of problems with anesthesia: No Surgical History Surgical History H/O right knee surgery History of Problems with Anesthesia: No Social History Social History Household Members: Children Housing: Apartment Do you presently have visiting nurse or other home services: No Patient Tobacco Use Status: Current everyday Tobacco user Tobacco use type: Cigarette Cigarette Packs Per Day: 0.5 Cigarettes Per Day: 15 Years Smoked: 49 Second Hand Smoke Exposure: No Use of substances other than those prescribed or required for medical reasons: No Are you DNR?: No Advance Directives: No Advance Directives Information Provided: Yes Advance Directives on File: No service: No Current occupational status: employed Meds Allergies Allergy/AdvReac Type Severity Reaction Status Date / Time Sulfa (Sulfonamide Allergy Intermediate MOUTH Verified 10/16/21 13:13 Antibiotics) EXCORIATION [SULFA (SULFONAMIDE ANTIBIOTICS)] Home Medications Medication Instructions Recorded Confirmed Last Taken Type fluoxetine 20 mg capsule 60 mg PO DAILY 04/22/21 10/15/21 05/22/21 History methylphenidate HCl 10 mg tablet 30 mg PO DAILY@1530 04/22/21 10/15/21 05/21/21 History methylphenidate HCl 20 mg tablet 30 mg PO DAILY@1200 04/22/21 10/15/21 05/21/21 History methylphenidate HCl 30 mg biphasic 30 mg PO DAILY@08 04/22/21 10/15/21 05/22/21 History 50-50 capsule,extended release multivitamin 1 tab PO DAILY 04/22/21 10/15/21 05/22/21 History trazodone 50 mg tablet 50 mg PO BEDTIME PRN 04/22/21 10/15/21 Unknown History cholecalciferol (vitamin D3) 25 25 mcg PO BID 05/22/21 10/15/21 05/22/21 History mcg (1,000 unit) tablet aripiprazole 2 mg tablet (Abilify) 2 mg PO DAILY 08/29/21 10/15/21 Unknown History naproxen 500 mg tablet 500 mg PO BID 09/22/21 10/15/21 Unknown History Exam Airway Mallampati Class: II TM Dist: >3cm Neck ROM: Full Assessment and Plan Assessment Anesthesia Assessment: Anesthesia Plan Discussed Final Anesthetic Review Family History of Problems with Anesthesia: No History of Problems with Anesthesia: No NPO: Yes ASA Class: II Final Preanesthetic Review: No Changes in Pt Med Stat, Meds/Allgs Chart Reviewed, Consent Obtained/Reviewed and Anes Risks/Benef Reviewed Patient Risk: Low Procedure Risk: Low Anesthetic Plan Anesthetic Plan: GA and Other (Plan for femoral nerve block intraop for postoperative pain to allow CPM.) Disposition: Standard PACU
[2021-10-21] VITALS (25 sets, daily range): BP systolic 101–122; BP diastolic 48–81; PULSE 86–105; RESP 16–18; TEMP 36.3–36.9; O2SAT 94–100; BMI 24.1
[2021-10-21] MEDS: Lactated Ringers 1,000 ML 100 ML IVCONT (07:23)
[2021-10-21 07:56] LABS: COVID-19 Test Negative (Negative)
[2021-10-21] MEDS: oxyCODONE HCl Immed Release 5 MG TABLET PO ×2 (08:39→18:56)
[2021-10-21] MEDS: ondansetron HCL 4 MG/2 ML VIAL IVPUSH (08:43)
--- NOTE | 2021-10-21 08:45 | MHC.SHP ---
Pre-Procedural Eval Section A Date of Service: 10/21/21 The patient is an INPATIENT: No Changes since office visit: Yes Patient answered all questions; No Cold of Flu in the past 2 weeks, No New Medical Problems and No Changes in Medication The History & Physical has been completed within 30 days and I have reviewed it.: Yes Section B Chief Complaint: stiffness of knee Allergies: Allergies Allergy/AdvReac Type Severity Reaction Status Date / Time Sulfa (Sulfonamide Allergy Intermediate MOUTH Verified 10/16/21 13:13 Antibiotics) EXCORIATION [SULFA (SULFONAMIDE ANTIBIOTICS)] Plan I have reviewed the history and physical and performed a pertinent physical examination on my patient. No changes have occurred unless specified.
--- NOTE | 2021-10-21 08:46 | PM.OP ---
Brief Operative Note Date of Service: 10/21/21 Pre-op diagnosis: right knee arthrofibrosis Post-op diagnosis: same Procedure: manipulation under anesthesia Implants: none Surgeon: Robert Carrillo MD Anesthesia: GETA and regional Was an Independent Marketing Consultant used for this Procedure?: Yes Independent Marketing Consultant: Adamaris Finnegan Estimated blood loss (mL): 0 IV fluids (mL): 250 Pathology: none sent Condition: stable Disposition: PACU
[2021-10-21] MEDS: LORazepam 2 MG/ML VIAL 1 MG IVPUSH (08:49)
[2021-10-21] MEDS: Ketorolac Tromethamine 15 MG/ML VIAL IVPUSH (08:58)
[2021-10-21] MEDS: HYDROmorphone HCl 0.5 MG/0.5 ML SYRINGE 0.25 MG IVPUSH ×2 (11:50→17:01)
[2021-10-21] MEDS: HYDROmorphone HCl 0.5 MG/0.5 ML SYRINGE IVPUSH (13:07)
[2021-10-21] MEDS: Celecoxib 200 MG CAPSULE PO (21:33)
[2021-10-21] MEDS: Docusate Sodium 100 MG CAPSULE PO (21:33)
[2021-10-21] MEDS: oxyCODONE HCl ER 10 MG TAB.ER.12H PO (21:33)
[2021-10-22] MEDS: 0.9 % Sodium Chloride Flush 3 ML SYRINGE IVFLUSH ×2 (01:24→08:52)
[2021-10-22 03:00] VITALS: BP 112/56; PULSE 97; RESP 17; TEMP 36.4; O2SAT 96
[2021-10-22] MEDS: HYDROmorphone HCl 0.5 MG/0.5 ML SYRINGE 0.25 MG IVPUSH (06:22)
[2021-10-22 07:00] VITALS: BP 103/57; PULSE 99; RESP 18; TEMP 36.6; O2SAT 98
--- NOTE | 2021-10-22 07:16 | P.DS_ITS ---
DS: Providers Provider Date of Service: 10/22/21 Primary care physician: Kyler Barber MD DS: Summary Hospital Course Hospital Course: The patient underwent a successful right knee manipulation under anesthesia, th ey were transferred to PACU and then to the floor to recover. During their stay, their vitals were stable, afebrile at 97.8. POD0 she was started in the CPM machine which remained on all night. She also received Physical Therapy services twice a day. Patient to be discharged home. Time Spent with Patient Time attestation: Total time spent providing and/or coordinating discharge services: Discharge coordination time: Less than 30 minutes Quality: Stroke Does the patient have a stroke diagnosis?: No Physical Exam Vital Signs: Vital Signs: Last Vital Signs Temp 97.6 F 10/22/21 03:00 Pulse 97 10/22/21 03:00 Resp 17 10/22/21 03:00 BP 112/56 L 10/22/21 03:00 Pulse Ox 96 10/22/21 03:00 Body Mass Index 24.1 Const: General: cooperative, healthy appearing and no acute distress Resp: Effort & Inspection: normal respiratory effort and able to speak in complete sentences Cardio: Rate: regular rate Peripheral pulses: Peripheral pulses 2+ throughout GI: Palpation (GI): Soft to palpation Skin: Lesions: no lesions Rashes: no rashes Extrem: Other: Right knee able to perform about 95 degrees of flexion. She is able to reach full extension. NVI. DS: Data Data Completed and Pending Completed studies during hospitalization [Text1]: Procedures Removal of Synthetic Substitute from Right Patella, Open Approach (05/22/21) Reposition Right Patella with Internal Fixation Device, Open Approach (04/23/21) Supplement Right Patella with Synthetic Substitute, Open Approach (05/22/21) Labs on day of discharge: Laboratory Results - last 24 hr 10/21/21 07:33 COVID-19 ([facility]) Negative COVID-19 Clin Com See Note Discharge Plan Discharge Patient Disposition: Home, Self-Care Referrals: Adamaris Finnegan PA-C [Physician Student Financial Aid Manager] - 1 Week (10/27/21 at 1:00pm) Discharge Medications: New celecoxib 200 mg Capsule 200 mg PO BID 30 Days Qty: 60 RF: 0 acetaminophen 325 mg Tablet 650 mg PO Q6H PRN (Reason: Pain, Mild (Pain Scale 1-3)) 30 Days Qty: 240 RF: 0 oxycodone 5 mg Tablet 5 mg PO Q4H 7 Days Qty: 42 RF: 0 oxycodone [OxyContin] 10 mg tablet,oral only,ext.rel.12 hr 10 mg PO Q12H 5 Days Qty: 10 RF: 0 Continued methylphenidate HCl 10 mg tablet 30 mg PO DAILY@1530 RF: 0 methylphenidate HCl 20 mg tablet 30 mg PO DAILY@1200 RF: 0 methylphenidate HCl 30 mg capsule,ER biphasic 50-50 30 mg PO DAILY@08 RF: 0 multivitamin Tablet 1 tab PO DAILY RF: 0 trazodone 50 mg tablet 50 mg PO BEDTIME PRN (Reason: insomnia) RF: 0 fluoxetine 20 mg capsule 60 mg PO DAILY RF: 0 cholecalciferol (vitamin D3) 25 mcg (1,000 unit) Tablet 25 mcg PO BID RF: 0 aripiprazole [Abilify] 2 mg tablet 2 mg PO DAILY RF: 0 baclofen 10 mg tablet 10 mg PO BEDTIME Qty: 60 RF: 0 naproxen 500 mg tablet 500 mg PO BID RF: 0 Discontinued oxycodone 5 mg tablet 5 mg PO BID PRN (Reason: Pain, Moderate (Pain Scale 4-6) 7 Days Qty: 14 RF: 0 acetaminophen-codeine 300-30 mg tablet 1 tab PO BID PRN (Reason: pain) Qty: 30 RF: 0 Discharge Orders: Discharge Order (Routine); Ordered 10/22/21 Ordered By: Adamairs Finnegan Activity Restrictions/Additional Instructions: WBAT CPM machine
[2021-10-22 08:29] VITALS: O2SAT 98
--- NOTE | 2021-10-22 08:41 | MHC.CM.PN ---
pt lives c her adult son in her home. she has a walker at home and has rented a CPM machine which will be delivered to her home today. she does not want to have home PT via [facility] as she prefers not to have people in her home. she is planning on participating in o.p. PT at [facility]. her son is able to help her c her care , this [place] at [place]. dc plan is home c o.p. PT at [facility]. cm to cont. to follow.
[2021-10-22] MEDS: oxyCODONE HCl ER 10 MG TAB.ER.12H PO (08:52)
[2021-10-22] MEDS: Docusate Sodium 100 MG CAPSULE PO (08:52)
[2021-10-22] MEDS: Celecoxib 200 MG CAPSULE PO (08:52)
[2021-10-22] MEDS: oxyCODONE HCl Immed Release 5 MG TABLET PO (08:52)
--- NOTE | 2021-10-22 10:35 | HO.POSTANES ---
Post Anesthesia Evaluation Post Anesthesia Evaluation Vital Signs: Vital Signs Temp Pulse Resp BP Pulse Ox 10/22/21 08:29 98 10/22/21 07:00 97.8 F 99 18 103/57 L 98 10/22/21 03:00 97.6 F 97 17 112/56 L 96 10/21/21 23:00 98.4 F 94 16 116/63 98 Anesthesia: General Mental Status: Awake Pain Control: Satisfactory Nausea/Vomiting: None Hydration: Adequate Anesthesia-Related Issues: No Anes. Related Issues
--- NOTE | 2021-10-22 12:09 | P.OP_ITS ---
Operative Note Operative Note Date of Service: 10/22/21 Narrative: Pre-op diagnosis: right knee arthrofibrosis Post-op diagnosis: same Procedure: manipulation under anesthesia Implants: none Surgeon: Robert Carrillo MD Anesthesia: GETA and regional Was an Direct Care Specialist used for this Procedure?: Yes Direct Care Specialist: Adamaris Finnegan Estimated blood loss (mL): 0 IV fluids (mL): 250 Pathology: none sent Condition: stable Disposition: PACU Procedure in detail: Lower was brought to the operating room placed supine on the operative table. A time-out was called to identify proper site and proper surgeon. I began by measuring her motion under anesthesia and she had 0-60 degrees of knee flexion. I then gently apply pressure to her lower leg and bend her knee to 120 degrees. This position was held for approximately 5 minutes. I felt I could not get anymore. There was audible lysis of adhesions. She was measured at 122 degrees passively and with assistance and 115 degrees at rest. A femoral nerve block was then administered and the patient was extubated brought to recovery room in stable condition there were no known complications.
== END 2021-10-22 12:26 | disposition home or self-care (01) ==
LOC: HO.SSS 06:36 → HO.IMC 14:53
PROVIDERS: PCP Internal Medicine; Visit Provider Orthopaedic Surgery
PROC: (CPT 29870; principal; 2021-10-21 07:30)
DX: M24.661 Ankylosis, right knee (principal); M25.561 Pain in right knee; Z98.890 Other specified postprocedural states; M62.838 Other muscle spasm; Z87.81 Personal history of (healed) traumatic fracture; F32.9 Major depressive disorder, single episode, unspecified; Z79.899 Other long term (current) drug therapy; Z88.2 Allergy status to sulfonamides; Z20.822 Contact with and (suspected) exposure to COVID-19; F17.210 Nicotine dependence, cigarettes, uncomplicated
CPT/HCPCS: 27570; 36415; 87635; 90686; 97162; J0171; J0690; J1100; J1170; J1885; J2060; J2250; J2405; J3010

== ENCOUNTER → 2021-10-30 13:01 | Outpatient (BNVA) | payer OTHER, SELFPAY | PROVIDERS: PCP Internal Medicine; Visit Provider Physician Assistant ==

== ENCOUNTER → 2021-12-01 15:08 | Outpatient (BNVA) | payer OTHER, SELFPAY | PROVIDERS: PCP Internal Medicine; Visit Provider Physician Assistant ==

== ENCOUNTER 2021-12-11 12:00 | Outpatient (RCR) | payer OTHER, SELFPAY ==
--- NOTE | 2021-10-17 14:11 | MHC.PT.EP ---
[facility] [place] Office [place] Office [place] Office [address] Ralf Justice [address] [phone] F: [phone] F: [phone] F: [phone] F: [phone] Physical Therapy Plan of Care Date of Evaluation: Date of Surgery: 04/24/21, 05/22/21 Diagnosis: other specified postprocedural states personal history of healed traumatic fracture unspecified fracture of R patella, initial encounter for closed fracture other muscle spasm pain in R knee Assessment: Pt is a pleasant 61yo F who presents to PT s/p R patella ORIF 04/24/[address] Parker. ORIF failed and pt had revision on 05/22/[address] Parker and had LE cast for about 2-3 months. She has a pressure injury on RLE being treated at wound clinic. She presents today with current impairments in pain, decreased ROM, decreased LE strength, soft tissue restrictions, decreased joint mobility, impaired balance, and gait. She is limited functionally by standing, walking, stair navigation, and ADLs. She is scheduled to undergo manipulation with Dr. Carrillo on 10/22/21. She is a good candidate for skilled PT services to address current impairments in order to facilitate return to PLOF. She will be seen 2x/week for 5 weeks and will be reassessed at that time. Frequency and Duration: The patient will be seen 2x/week for 5 weeks Short Term Goals: Pt will be I with HEP to promote self management of symptoms Pt will improve R knee flexion by at least 5 deg Pt will report pain 7/10 after functional mobility Care Home Goals: Pt will improve R knee flexion by at least 20 degrees in order for pt to participate in functional tasks with minimal compensation Pt will ambulate > 30 min with LRAD Pt will improve R quad strength by 1 grade to assist with stair navigation Pt will demonstrate improvements in functional mobility as evidenced by statistically significant improvement in LEFI outcome measure. Treatment Plan: Modalities to reduce pain, spasms and effusion. Manual therapy to restore motion and function. Therapeutic exercise to improve strength and flexibility. Neuromuscular re-education for posture and balance. Therapeutic activities to return to functional activities of daily living. Electronically signed by: Unique Thakkar, PT, DPT Please sign and return to therapist. Thank you for your referral.
--- NOTE | 2022-01-16 13:38 | MHC.PT.DC ---
[facility] [place] Office [place] Office [place] Office [address] Ralf Justice [address] [phone] F: [phone] F: [phone] F: [phone] F: [phone] Physical Therapy Discharge Report Diagnosis: other specified postprocedural states personal history of healed traumatic fracture unspecified fracture of R patella, initial encounter for closed fracture other muscle spasm pain in R knee Date of Surgery: 04/24/21, 05/22/21 Date of Evaluation: 10/16/21 Date of Discharge: 01/16/22 Treatments to Date: 7 Cancellations to Date: 6 No Shows to Date: 1 Discharge Status: Patient Elected to Stop Discharge Summary: Pt was seen for PT from 10/16/21-12/11/21. She attended 7 PT sessions since SOC. Her last attended appointment was 12/11/21. Pt has elected to stop with PT. I called pt today, 01/16/22, and pt reports no further questions for PT at this time. Pt is being D/C from PT. Pt current level of function unknown at this time. Electronically signed by: Unique Thakkar, PT, DPT Please sign and return to therapist. Thank you for your referral.
== END 2022-01-16 13:41 | disposition home or self-care (01) ==
LOC: HO.PT 12:00
PROVIDERS: Visit Provider Physician Assistant
DX: S82.001D Unspecified fracture of right patella, subsequent encounter for closed fracture with routine healing (principal); M62.838 Other muscle spasm; M25.561 Pain in right knee; Z98.890 Other specified postprocedural states; Z87.81 Personal history of (healed) traumatic fracture
CPT/HCPCS: 97110; 97112; 97140; 97162; 97530

== ENCOUNTER 2021-12-31 14:44 | Emergency (ER) | payer OTHER, SELFPAY ==
--- NOTE | 2021-12-31 | ECG_ITS ---
Test Reason : SOB Blood Pressure : / mmHG Vent. Rate : 102 BPM Atrial Rate : 102 BPM P-R Int : 162 ms QRS Dur : 070 ms QT Int : 348 ms P-R-T Axes : 080 066 063 degrees QTc Int : 453 ms Sinus tachycardia Possible Left atrial enlargement Borderline ECG No significant changes when compared with the previous EKG of 23 apr 2012. Referred By: Juan Fonseca Electronically Signed By:DANN CANTOR
--- NOTE | ~2021-12-31 | CT_ITS ---
EXAMINATION: CT ANGIOGRAM OF THE CHEST WITH AND WITHOUT CONTRAST (CT PULMONARY ANGIOGRAM FOR PE) CLINICAL INFORMATION: Reason for Exam Chest pain and dyspnea post COVID-19 COMPARISON: Chest radiograph done on 02/15/2021. TECHNIQUE: Prior to contrast administration, noncontrast localization images were obtained. Subsequently, multidetector volumetric imaging was performed from the thoracic inlet to below the diaphragms following the administration of 80 mL Omnipaque 350 intravenous contrast. No contrast reaction reported Sagittal, coronal, and MIP oblique sagittal reformatted images were obtained on the CT workstation, uploaded to PACS, and reviewed. This CT examination was performed using dose optimization techniques as appropriate, variously including the following: *Automated exposure control *Adjustment of mA and/or kV according to patient size (this includes techniques or standardized protocols for targeted exams where dose is matched to indication/reason for exam; i.e. extremities or head) *Use of iterative reconstruction technique Total exam dose-length product 216 mGy-cm FINDINGS: QUALITY OF STUDY/CONTRAST BOLUS: Satisfactory. PULMONARY ARTERIES: No central or segmental pulmonary emboli. THORACIC AORTA: No aneurysm or dissection. LUNG: No focal consolidation, nodules or masses. Mild emphysematous disease is present. PLEURA: No pleural effusion or pneumothorax. MEDIASTINUM: Normal heart size. No pericardial effusion. No hilar or mediastinal lymphadenopathy. No evidence of septal bowing or right heart strain. CHEST WALL/AXILLA: No axillary or internal mammary lymphadenopathy. OSSEOUS STRUCTURES: No acute or suspicious osseous abnormality. UPPER ABDOMEN: Unremarkable. No reflux of contrast into the hepatic veins to suggest elevated right heart pressures. CT/CT angio chest PE protocol IMPRESSION: No CT evidence of pulmonary thromboembolism. Mild emphysematous disease is present. No CT evidence of pneumonia. VTE: Negative.
[2021-12-31 14:57] VITALS: BP 148/84; PULSE 101; RESP 22; TEMP 36.6; O2SAT 99; BMI 25.0
[2021-12-31 15:04] VITALS: BP 148/84; PULSE 97; RESP 18; TEMP 36.6; O2SAT 100
--- NOTE | 2021-12-31 15:34 | ED_ITS ---
HPI - Chest Pain General Chief Complaint: Chest Pain Stated Complaint: Chest pain Time Seen by Provider: 12/31/21 15:19 Source: patient and old records reviewed History of Present Illness HPI narrative: Patient states she started having severe dyspnea and some left-sided chest pain yesterday at approximately 4:00 p.m. while at work. 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 Symptoms have continued oversensitive and constant. Chest pain is left-sided and sharp. No change with inspiration or palpation. No prior history of cardiac disease or chest pain. She has a history of COPD but is not on any inhalers at this time. She called her PCP who originally was going to order a chest x-ray but recommended she come to the emergency department if her symptoms continue to worsen. She states she had a sense of impending doom and felt like she was going to on the way here. No history of thromboembolic disease. She does have a significant history, however, for a right patella fracture with several surgeries over the past several months. Her leg has been hurting recently. No specific calf tenderness. She is a current daily smoker. She is also recovering from COVID-19. Her 1st symptom was approximately 15 days ago. She states she felt completely better before returning to work. She did have some dyspnea and cough the time but those symptoms resolved. Related Data Home Medications Medication Instructions Recorded Confirmed fluoxetine 20 mg capsule 60 mg PO DAILY 04/22/21 10/15/21 methylphenidate HCl 10 mg tablet 30 mg PO DAILY@1530 04/22/21 10/15/21 methylphenidate HCl 20 mg tablet 30 mg PO DAILY@1200 04/22/21 10/15/21 methylphenidate HCl 30 mg biphasic 30 mg PO DAILY@08 04/22/21 10/15/21 50-50 capsule,extended release multivitamin 1 tab PO DAILY 04/22/21 10/15/21 trazodone 50 mg tablet 50 mg PO BEDTIME PRN 04/22/21 10/15/21 cholecalciferol (vitamin D3) 25 25 mcg PO BID 05/22/21 10/15/21 mcg (1,000 unit) tablet aripiprazole 2 mg tablet (Abilify) 2 mg PO DAILY 08/29/21 10/15/21 naproxen 500 mg tablet 500 mg PO BID 09/22/21 10/15/21 Previous Rx's Medication Instructions Recorded acetaminophen 325 mg tablet 650 mg PO Q6H PRN 30 Days #240 10/22/21 tab oxycodone 10 mg tablet,crush 10 mg PO Q12H 5 Days #10 tab 10/22/21 resistant,extended release 12 hr (OxyContin) oxycodone 5 mg tablet 5 mg PO Q4H 7 Days #42 tab 10/22/21 baclofen 10 mg tablet 10 mg PO BID #60 tab 12/02/21 acetaminophen 300 mg-codeine 30 mg 1 tab PO BID PRN #14 tab 12/05/21 tablet celecoxib 200 mg capsule 200 mg PO BID #60 cap 12/11/21 albuterol sulfate 90 mcg/actuation 2 puff INHALATION Q6H PRN #8.5 g 12/31/21 aerosol inhaler oxycodone-acetaminophen 5 mg-325 1 tab PO Q6H PRN #14 tab 12/31/21 mg tablet (Percocet) prednisone 20 mg tablet 40 mg PO DAILY #10 tab 12/31/21 Allergies Allergy/AdvReac Type Severity Reaction Status Date / Time Sulfa (Sulfonamide Allergy Intermediate MOUTH Verified 12/31/21 15:00 Antibiotics) EXCORIATION [SULFA (SULFONAMIDE ANTIBIOTICS)] Review of Systems Verdana 4l Constitutional: Verdana 4d Comments: Verdana 4d Verdana 4d Verdana 4d No fevers or chills Verdana 4d Verdana 4l Cardiovascular: Verdana 4d Comments: Verdana 4d Verdana 4d Verdana 4d Chest pain as described Verdana 4d Verdana 4l Respiratory: Verdana 4d Verdana 4d Comments: Verdana 4d Verdana 4d Dyspnea as described. Minimal cough Verdana 4d Verdana 4l Gastrointestinal: Verdana 4d Comments: Verdana 4d Verdana 4d Verdana 4d No nausea vomiting. Positive diarrhea over the last several days Verdana 4d Verdana 4l Musculoskeletal: Verdana 4d Comments: Verdana 4d Verdana 4d Verdana 4d Right anterior, patella knee pain. No posterior leg pain Verdana 4d Verdana 4l Integumentary/Breasts: Verdana 4d Comments: Verdana 4d Verdana 4d Verdana 4d No rash or skin changes Verdana 4d Verdana 4l Neurologic: Verdana 4d Verdana 4d Comments: Verdana 4d Verdana 4d No focal weakness numbness or paresthesias Verdana 4d Verdana 4l Psychiatric: Verdana 4d Verdana 4d Comments: Verdana 4d Verdana 4d Anxiety. She states she has a history of anxiety in the past but it has never caused this set of symptoms Verdana 4d [facility] Past Medical History Medical History ADD (attention deficit disorder) Depressed Migraines Right knee pain Surgical History H/O right knee surgery Social History Social History Household Members: Children Housing: Apartment Do you presently have visiting nurse or other home services: No Patient Tobacco Use Status: Current everyday Tobacco user Tobacco use type: Cigarette Cigarette Packs Per Day: 0.5 Cigarettes Per Day: 3 Years Smoked: 49 Second Hand Smoke Exposure: No Advance Directives: No Advance Directives Information Provided: Yes service: No Current occupational status: employed Physical Exam Verdana 4l Vital Signs: Verdana 4d Verdana 4d Vital Signs: Verdana 4d Verdana 4Bd Last Vital Signs Verdana 4d [employer]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 Appears dyspneic and anxious. Her oxygen saturation is 99% on room air. HENMT: Other: No obvious JVD Neck: Other: Full range of motion Chest: Other: No chest wall pain. She can point to spot on left chest where hurts but it is nontender. Resp: Other: Appears dyspneic. There are bilateral scattered rhonchi. Fair to good air entry Cardio: Other: Regular rate and rhythm without murmurs rubs or gallops GI: Other: Soft nontender nondistended with normoactive bowel sounds Skin: Other: Warm pink and dry Neuro: Other: Nonfocal Extrem: Other: Right knee tender to palpation anteriorly. There is no warmth or erythema. There is no calf tenderness to palpation. No pedal edema Psych: Other: Anxious as described Course Course Course Narrative: Chest pain and dyspnea several months postoperatively in 2 weeks post COVID-19 pneumonia. Pulmonary embolism Acute coronary syndrome COVID-19 infection Pneumonia Bronchitis COPD exacerbation Anxiety Duodenum IV Solu-Medrol IV Ativan CT angio of chest ordered immediately. Review of prior records shows normal renal function in March of 2021. 8:[address] angio without evidence of pulmonary embolism or infiltrate. Patient is feeling better after treatment and post ambulatory saturation is 99% on room air. Mildly tachycardic at 1:15 a.m. but patient feels better than on arrival. She is stable for discharge home. Final diagnosis COPD exacerbation MDM - Chest Pain Lab Data Result diagrams: 12/31/21 16:04 12/31/21 16:04 Labs: Lab Results 12/31/21 12/31/21 12/31/21 Range/Units 16:04 16:04 16:04 WBC 6.7 (4.8-10.8) X10*3/uL RBC 4.88 (4.20-5.50) X10*6/uL Hgb 16.1 H (12.0-16.0) g/dl Hct 48.0 H (37.0-47.0) % MCV 98.4 H (80.0-98.0) fL MCH 33.0 (27.0-33.0) pg MCHC 33.5 (31.0-35.0) g/dl RDW 12.8 (11.0-16.0) % Plt Count 256 (160-400) X10*3/uL MPV 9.5 (9.4-12.3) fL Immature Gran % (Auto) 0.3 (0.0-0.4) % Neut % (Auto) 52.7 (45-73) % Lymph % (Auto) 32.1 (20-40) % [place] % (Auto) 12.1 H (2-11) % Eos % (Auto) 2.2 (0-4) % Baso % (Auto) 0.6 (0-2) % Lymph # (Auto) 2.2 (1.2-4.9) X10*3/uL [place] # (Auto) 0.8 (0.1-1.2) X10*3/uL Eos # (Auto) 0.2 (0.0-0.4) X10*3/uL Baso # (Auto) 0.0 (0.0-0.2) X10*3/uL Abs Immat Gran (auto) 0.02 (0.00-0.03) X10*3/uL Absolute Neuts (auto) 3.5 (2.0-8.3) x10*3/uL Absolute Nucleated RBC 0.000 (0.0-0.012) X10*3/uL Nucleated RBC % (auto) 0.0 (0.0-0.2) /100WBC D-Dimer High Sensitivty NG/ML Sodium 141 (135-145) mmol/L Potassium 4.6 (3.3-5.1) mmol/L Chloride 110 H (96-108) mmol/L Carbon Dioxide 22 (22-29) mmol/L Anion Gap 14 (12-20) BUN 13 (9-16) mg/dL Creatinine 0.69 (0.5-1.4) mg/dL Estim Creat Clear Calc 76.0 Estimated GFR > 60 Random Glucose 93 (60-115) mg/dL Calcium 9.5 D (8.4-10.2) mg/dL Total Bilirubin 0.4 (0.0-1.0) mg/dL AST 24 (5-31) U/L ALT 16 (0-31) U/L Alkaline Phosphatase 75 (39-117) U/L Troponin I High Sens (<3.5-17.0) ng/L Total Protein 6.8 (6.5-8.0) g/dL Albumin 4.1 (3.5-5.0) g/dL COVID-19 ([facility]) Negative (Negative) COVID-19 Clin Com See Note 12/31/21 12/31/21 Range/Units 16:05 16:05 WBC (4.8-10.8) X10*3/uL RBC (4.20-5.50) X10*6/uL Hgb (12.0-16.0) g/dl Hct (37.0-47.0) % MCV (80.0-98.0) fL MCH (27.0-33.0) pg MCHC (31.0-35.0) g/dl RDW (11.0-16.0) % Plt Count (160-400) X10*3/uL MPV (9.4-12.3) fL Immature Gran % (Auto) (0.0-0.4) % Neut % (Auto) (45-73) % Lymph % (Auto) (20-40) % [place] % (Auto) (2-11) % Eos % (Auto) (0-4) % Baso % (Auto) (0-2) % Lymph # (Auto) (1.2-4.9) X10*3/uL [place] # (Auto) (0.1-1.2) X10*3/uL Eos # (Auto) (0.0-0.4) X10*3/uL Baso # (Auto) (0.0-0.2) X10*3/uL Abs Immat Gran (auto) (0.00-0.03) X10*3/uL Absolute Neuts (auto) (2.0-8.3) x10*3/uL Absolute Nucleated RBC (0.0-0.012) X10*3/uL Nucleated RBC % (auto) (0.0-0.2) /100WBC D-Dimer High Sensitivty < 150 NG/ML Sodium (135-145) mmol/L Potassium (3.3-5.1) mmol/L Chloride (96-108) mmol/L Carbon Dioxide (22-29) mmol/L Anion Gap (12-20) BUN (9-16) mg/dL Creatinine (0.5-1.4) mg/dL Estim Creat Clear Calc Estimated GFR Random Glucose (60-115) mg/dL Calcium (8.4-10.2) mg/dL Total Bilirubin (0.0-1.0) mg/dL AST (5-31) U/L ALT (0-31) U/L Alkaline Phosphatase (39-117) U/L Troponin I High Sens < 3.5 (<3.5-17.0) ng/L Total Protein (6.5-8.0) g/dL Albumin (3.5-5.0) g/dL COVID-19 ([facility]) (Negative) COVID-19 Clin Com Discharge Plan Discharge Clinical Impression: COPD exacerbation Patient Disposition: Home, Self-Care Instructions: COPD (Chronic Obstructive Pulmonary Disease) (ED) Prescriptions: New oxycodone-acetaminophen [Percocet] 5-325 mg tablet 1 tab PO Q6H PRN (Reason: pain) Qty: 14 0RF albuterol sulfate 90 mcg/actuation HFA aerosol inhaler 2 puff inhalation Q6H PRN (Reason: shortness of breath or wheezing) Qty: 8.5 0RF prednisone 20 mg tablet 40 mg PO DAILY Qty: 10 0RF No Action baclofen 10 mg tablet 10 mg PO BID Qty: 60 2RF acetaminophen-codeine 300-30 mg tablet 1 tab PO BID PRN (Reason: pain) Qty: 14 0RF Rx Instructions: before/after PT sessions celecoxib 200 mg capsule 200 mg PO BID Qty: 60 0RF methylphenidate HCl 10 mg tablet 30 mg PO DAILY@1530 0RF methylphenidate HCl 20 mg tablet 30 mg PO DAILY@1200 0RF methylphenidate HCl 30 mg capsule,ER biphasic 50-50 30 mg PO DAILY@08 0RF multivitamin Tablet 1 tab PO DAILY 0RF trazodone 50 mg tablet 50 mg PO BEDTIME PRN (Reason: insomnia) 0RF fluoxetine 20 mg capsule 60 mg PO DAILY 0RF cholecalciferol (vitamin D3) 25 mcg (1,000 unit) Tablet 25 mcg PO BID 0RF acetaminophen 325 mg Tablet 650 mg PO Q6H PRN (Reason: Pain, Mild (Pain Scale 1-3)) 30 Days Qty: 240 0RF oxycodone 5 mg Tablet 5 mg PO Q4H 7 Days Qty: 42 0RF oxycodone [OxyContin] 10 mg tablet,oral only,ext.rel.12 hr 10 mg PO Q12H 5 Days Qty: 10 0RF aripiprazole [Abilify] 2 mg tablet 2 mg PO DAILY 0RF naproxen 500 mg tablet 500 mg PO BID 0RF
[2021-12-31 15:56] VITALS: BP 114/70; PULSE 89; RESP 16; TEMP 36.8; O2SAT 98
[2021-12-31 16:14] LABS: MANUAL DIFF FLAG NO
[2021-12-31 16:15] LABS: Red Blood Count 4.88 X10*6/uL (4.20-5.50); White Blood Count 6.7 X10*3/uL (4.8-10.8)
[2021-12-31 16:16] LABS: Basophils Percent Auto 0.6 % (0-2); Eosinophils Absolute Auto 0.2 X10*3/uL (0.0-0.4); Eosinophils Percent Auto 2.2 % (0-4); Hemoglobin 16.1 g/dl (12.0-16.0); Imm Gran Abs Auto 0.02 X10*3/uL (0.00-0.03); Imm Gran Pct Auto 0.3 % (0.0-0.4); Lymphocytes Absolute Auto 2.2 X10*3/uL (1.2-4.9); Lymphocytes Percent Auto 32.1 % (20-40); Mean Corpuscular HGB Conc 33.5 g/dl (31.0-35.0); Mean Corpuscular Volume 98.4 fL (80.0-98.0); Mean Platelet Volume 9.5 fL (9.4-12.3); Monocytes Absolute Auto 0.8 X10*3/uL (0.1-1.2); Monocytes Percent Auto 12.1 % (2-11); Neutrophils Absolute Auto 3.5 x10*3/uL (2.0-8.3); Neutrophils Percent Auto 52.7 % (45-73); Platelet Count 256 X10*3/uL (160-400); Red Cell Distribution Width 12.8 % (11.0-16.0)
[2021-12-31 16:27] LABS: D Dimer High Sensitivity < 150 NG/ML
[2021-12-31] MEDS: 0.9 % Sodium Chloride 500 ML IV (16:28)
[2021-12-31 16:30] LABS: COVID-19 Test Negative (Negative)
[2021-12-31] MEDS: LORazepam 2 MG/ML VIAL 1 MG IVPUSH (16:33)
[2021-12-31] MEDS: methylPREDNISolone Sod Succ 125 MG/2 ML VIAL IVPUSH (16:33)
[2021-12-31 16:35] LABS: Alanine Aminotransferase 16 U/L (0-31); Albumin Level 4.1 g/dL (3.5-5.0); Alkaline Phosphatase 75 U/L (39-117); Anion Gap 14 (12-20); Aspartate Amino Transferase 24 U/L (5-31); Bilirubin Total 0.4 mg/dL (0.0-1.0); Blood Urea Nitrogen 13 mg/dL (9-16); Calcium 9.5 mg/dL (8.4-10.2); Carbon Dioxide 22 mmol/L (22-29); Chloride 110 mmol/L (96-108); Estimated Glomerular Filt Rate > 60; Glucose Random 93 mg/dL (60-115); Potassium 4.6 mmol/L (3.3-5.1); Sodium 141 mmol/L (135-145); Total Protein 6.8 g/dL (6.5-8.0)
[2021-12-31 16:36] LABS: Troponin-I High Sensitivity < 3.5 ng/L (<3.5-17.0)
[2021-12-31] MEDS: iohexoL 350 MG/ML 100 ML INFUS..BTL IV (16:47)
[2021-12-31] MEDS: Albuterol/Iprat 2.5/0.5MG 3 ML AMPUL.NEB INHALE (17:46)
[2021-12-31 17:47] VITALS: PULSE 20; O2SAT 98
[2021-12-31 18:43] VITALS: BP 130/76; PULSE 89; RESP 16; TEMP 36.7; O2SAT 99
--- NOTE | 2021-12-31 18:45 | PC.NURSE ---
Patient now having dinner .
[2021-12-31] MEDS: oxyCODONE HCl Immed Release 5 MG TABLET PO (19:36)
--- NOTE | 2021-12-31 19:39 | PC.NURSE ---
medicated for pain per provider order.
[2021-12-31 20:32] VITALS: BP 128/74; PULSE 99; RESP 16; TEMP 36.6; O2SAT 97
== END 2021-12-31 20:56 | disposition home or self-care (01) ==
PROVIDERS: Emergency Provider Emergency Medicine; PCP Internal Medicine
DX: J44.1 Chronic obstructive pulmonary disease with (acute) exacerbation (principal); R07.89 Other chest pain; F17.210 Nicotine dependence, cigarettes, uncomplicated; Z71.6 Tobacco abuse counseling; Z20.822 Contact with and (suspected) exposure to COVID-19; Z79.899 Other long term (current) drug therapy
CPT/HCPCS: 36415; 71275; 80053; 84484; 85025; 85379; 87635; 93005; 94640; 96361; 96374; 96375; 99284; J2060; J2930; Q9967

== ENCOUNTER → 2022-02-02 14:09 | Outpatient (BNVA) | payer OTHER, SELFPAY | PROVIDERS: PCP Internal Medicine; Visit Provider Orthopaedic Surgery ==

== ENCOUNTER 2022-03-11 11:00 | Outpatient (RCR) | payer OTHER, SELFPAY ==
--- NOTE | 2022-02-04 11:41 | MHC.PT.EP ---
[facility] [place] Office [place] Office [place] Office [address] Ralf Justice [address] [phone] F: [phone] F: [phone] F: [phone] F: [phone] Physical Therapy Plan of Care Date of Evaluation: Date of Surgery: 04/24/21, 05/22/21, 10/21/21 Diagnosis: other specified post procedural states personal history of (healed) traumatic fracture unspecified fracture of right patella other muscle spasm pain in right knee Assessment: Pt is a 61yo F who presents to PT s/p R knee surgeries. She is s/p patella ORIF 04/24/21, patella revision 05/22/21, and s/p R knee manipulation 10/21/21. She was seen for PT at this facility from 10/16/21-12/11/21. She has maintained excellent ROM in her R knee. She presents with current impairments in decreased quad length, decreased hip/glute strength, decreased quad eccentric strength, impaired gait, and impaired balance. She is limited functionally by prolonged standing, prolonged walking, and stair navigation. She is a good candidate for PT in order to maximize strength and endurance to improve performance with gait and functional mobility. Frequency and Duration: The patient will be seen 2x/week for 5 weeks Short Term Goals: Pt will be I with HEP to promote self management of symptoms Pt will improve R quad length to WFL [employer] Goals: Pt will tolerate ambulation > 30 min on even and uneven surfaces with improved gait mechanics with LRAD Pt will demonstrate ability to ascend/descend 1 flight of stairs with reciprocal gait pattern Pt will demonstrate improvements in functional mobility as evidenced by statistically significant improvement in LEFI outcome measure Treatment Plan: Modalities to reduce pain, spasms and effusion. Manual therapy to restore motion and function. Therapeutic exercise to improve strength and flexibility. Neuromuscular re-education for posture and balance. Therapeutic activities to return to functional activities of daily living. Electronically signed by: Unique Thakkar, PT, DPT Please sign and return to therapist. Thank you for your referral.
--- NOTE | 2022-03-18 11:47 | MHC.PT.DC ---
[facility] [place] Office [place] Office [place] Office [address] Ralf Justice [address] [phone] F: [phone] F: [phone] F: [phone] F: [phone] Physical Therapy Discharge Report Diagnosis: other specified post procedural states personal history of (healed) traumatic fracture unspecified fracture of right patella other muscle spasm pain in right knee Date of Surgery: 04/24/21, 05/22/21, 10/21/21 Date of Evaluation: 02/03/22 Date of Discharge: 03/18/22 Treatments to Date: 10 Cancellations to Date: 1 No Shows to Date: Discharge Status: Improved Function Independent with HEP Discharge Summary: Pt was seen for PT from 02/03/22-03/11/22. She has made excellent progress since SOC. She has met her STGs and made good progress toward her LTGs. She is able to ambulate > 30 min without AD and demonstrated ability to navigate stairs with reciprocal pattern. She is I with HEP. Pt is being D/C from skilled PT. Electronically signed by: Unique Thakkar, PT, DPT Please sign and return to therapist. Thank you for your referral.
== END 2022-03-18 11:47 | disposition home or self-care (01) ==
LOC: HO.PT 11:00
PROVIDERS: Visit Provider Physician Assistant
DX: Z98.890 Other specified postprocedural states (principal); Z87.81 Personal history of (healed) traumatic fracture; M62.838 Other muscle spasm; M25.561 Pain in right knee
CPT/HCPCS: 97110; 97112; 97140; 97162; 97530

== ENCOUNTER 2022-03-26 15:23 | Outpatient (REF) | payer OTHER, SELFPAY ==
--- NOTE | ~2022-03-26 | MM_ITS ---
EXAMINATION: MM SCREENING DIGITAL BREAST TOMOSYNTHESIS, BILATERAL CLINICAL INFORMATION: Screening. Asymptomatic. The lifetime risk of breast cancer based on the Tyrer-Cuzick Model is 7.1%. COMPARISON: Mammography: December 28, 2019 and studies dating back to July 11, 2009 TECHNIQUE: Digital breast tomosynthesis is performed in both the craniocaudal and mediolateral oblique views along with computer-aided detection (CAD). Synthesized 2D images are generated from the tomosynthesis. FINDINGS: There are scattered areas of fibroglandular density (ACR BI-RADS breast composition Category b). There are no new significant masses, abnormal calcifications, or other abnormalities. Stable region of architectural distortion with calcifications again seen in the deep lateral aspect of the right breast. MM/MM tomosynthesis screening BI IMPRESSION: There are no significant changes from prior study. ASSESSMENT: BI-RADS 2: Benign RECOMMENDATION: Routine annual mammography screening. This patient's information was entered into a reminder system with a target due date for their next mammogram.
== END 2022-03-26 15:24 | disposition home or self-care (01) ==
LOC: HO.MAMMO 15:23
PROVIDERS: Visit Provider Internal Medicine
DX: Z12.31 Encounter for screening mammogram for malignant neoplasm of breast (principal)
CPT/HCPCS: 77063; 77067

== ENCOUNTER 2022-04-14 08:14 | Outpatient (REF) | payer OTHER, SELFPAY | END 2022-04-14 08:15 | disposition home or self-care (01) | LOC: HO.MAMMO 08:14 | PROVIDERS: PCP Internal Medicine; Visit Provider Internal Medicine | DX: Z13.89 Encounter for screening for other disorder (principal) ==

== ENCOUNTER 2022-04-20 15:00 | Outpatient (REF) | payer OTHER, SELFPAY ==
--- NOTE | ~2022-04-20 | XR_ITS ---
EXAMINATION: XR CHEST CLINICAL INFORMATION: Cough. COMPARISON: CT chest 12/31/2021 TECHNIQUE: 2 views of the chest were obtained. FINDINGS: Lungs are clear. No pulmonary vascular congestion. There is no pleural effusion. The heart size is normal. The cardiac and mediastinal contours are normal. There are multilevel degenerative changes of dorsal spine. XR/XR chest 2V IMPRESSION: Unremarkable examination.
== END 2022-04-20 15:01 | disposition home or self-care (01) ==
LOC: HO.XRAY 15:00
PROVIDERS: PCP Internal Medicine; Visit Provider Internal Medicine
DX: R05.9 Cough, unspecified (principal)
CPT/HCPCS: 71046

== ENCOUNTER 2022-12-07 11:56 | Outpatient (REF) | payer MEDICAID, SELFPAY ==
--- NOTE | ~2022-12-07 | XR_ITS ---
EXAMINATION: XR CHEST CLINICAL INFORMATION: Fatigue COMPARISON: X-ray 04/20/2022 TECHNIQUE: 2 views of the chest were obtained. FINDINGS: Cardiac and mediastinal silhouette is within normal limits. There is a hazy opacity projected over the right lower lung. This is faintly seen on the prior x-ray 04/20/2022. No focal consolidation otherwise. No effusion, edema or pneumothorax. Mild dorsal spine degeneration. XR/XR chest 2V IMPRESSION: Hazy opacity projected over the right lower lung, of indeterminate etiology. This could be related to overlapping densities, perhaps nipple shadow versus parenchymal opacity. Suggest follow-up radiograph with nipple markers or CT scan for further evaluation.
== END 2022-12-07 11:57 | disposition home or self-care (01) ==
LOC: HO.XRAY 11:56
PROVIDERS: PCP Internal Medicine; Visit Provider Internal Medicine
DX: R53.83 Other fatigue (principal)
CPT/HCPCS: 71046

== ENCOUNTER 2023-04-01 15:36 | Outpatient (REF) | payer MEDICAID, SELFPAY ==
--- NOTE | ~2023-04-01 | MM_ITS ---
EXAMINATION: MM SCREENING DIGITAL BREAST TOMOSYNTHESIS, BILATERAL CLINICAL INFORMATION: Screening. Asymptomatic. The lifetime risk of breast cancer based on the Tyrer-Cuzick Model is 7%. COMPARISON: Mammography: 03/26/2022, 12/28/2019, 12/22/2018, 07/29/2017 TECHNIQUE: Digital breast tomosynthesis is performed in both the craniocaudal and mediolateral oblique views along with computer-aided detection (CAD). Synthesized 2D images are generated from the tomosynthesis. FINDINGS: There are scattered areas of fibroglandular density (ACR BI-RADS breast composition Category b). Parenchymal pattern is similar to prior studies and there is no developing density or architectural abnormality or abnormal calcifications. The axilla are unremarkable. No significant changes from prior studies. MM/MM tomosynthesis screening BI IMPRESSION: No mammographic evidence of malignancy. ASSESSMENT: BI-RADS 1: Negative RECOMMENDATION: Routine annual mammography screening. This patient's information was entered into a reminder system with a target due date for their next mammogram.
== END 2023-04-01 15:37 | disposition home or self-care (01) ==
LOC: HO.MAMMO 15:36
PROVIDERS: PCP Internal Medicine; Visit Provider Internal Medicine
DX: Z12.31 Encounter for screening mammogram for malignant neoplasm of breast (principal)
CPT/HCPCS: 77063; 77067

== ENCOUNTER 2023-09-17 13:29 | Outpatient (REF) | payer MEDICAID, SELFPAY ==
--- NOTE | ~2023-09-17 | MM_ITS ---
EXAMINATION: BONE DENSITOMETRY CLINICAL INDICATION: Asymptomatic menopausal state. COMPARISON: Previous BD dated 07/16/2020 and baseline BD dated 07/11/2009. TECHNIQUE: Using a [employer] DXA System (software version: 13.1) manufactured by [employer], dual-energy x-ray absorptiometry was performed of the lumbar spine and left hip. The images are of good technical quality. Summary results are attached. FINDINGS: LEFT FEMUR, NECK: Current: BMD 0.779 g/cm2, Z-score -0.5, T-score -1.9, osteopenia. Prior: BMD 0.868 g/cm2. Baseline: BMD 1.043 g/cm2. LEFT FEMUR, TOTAL: Current: BMD 0.907 g/cm2, Z-score 0.2, T-score -0.8, normal, 2.6% decrease from previous, 14.8% decrease from baseline (<5% change is not significant). Prior: BMD 0.931 g/cm2. Baseline: BMD 1.064 g/cm2. AP SPINE L1-L4: Current: BMD 1.075 g/cm2, Z-score 0.5, T-score -0.9, normal, 5.7% decrease from previous, 12.5% decrease from baseline (<5% change is not significant). Prior: BMD 1.140 g/cm2. Baseline: BMD 1.228 g/cm2. IDENTIFIED RISK FACTORS: History of fracture (adult), menopause, recurrent falls, tobacco user (current smoker). HISTORY OF FRACTURE: Other. MEDICATIONS: Calcium supplements or multivitamin, vitamin D. MM/XR DEXA axial skeleton IMPRESSION: 1. DIAGNOSIS: Osteopenia based on the lowest T-score value of -1.9 in the femoral neck applying World Health Organization criteria. 2. 10-YEAR FRACTURE RISK PREDICTION, FRAX: Major osteoporotic fracture (clinical spine, forearm, hip or shoulder) 17.4%. Hip fracture 3.9%. 3. Treatment Recommendations: NOF guidelines recommend consideration for treatment in postmenopausal women and men age 50 and older presenting with the following: -A hip or vertebral (clinical or morphometric) fracture. -T-score less than or equal to -2.5 at the femoral neck or spine after appropriate evaluation to exclude secondary causes. -Low bone mass at the hip or spine and a 10-year fracture probability by FRAX of greater than or equal to 3% for hip fracture or greater than or equal to 20% for major osteoporotic fracture based on the [place] adapted WHO algorithm. 4. Other Recommendations: All treatment decisions require clinical judgment and consideration of individual patient factors, including patient preferences, comorbidities, previous drug use, risk factors not captured in the FRAX model (e.g. frailty, falls, vitamin D deficiency, increased bone turnover, interval significant decline in bone density) and possible under or overestimation of fracture risk by FRAX. Additional medical evaluation for secondary cause of low bone mineral density may be appropriate. FUTURE SCAN RECOMMENDATION: People with diagnosed cases of osteoporosis or at high risk for fracture should have regular bone mineral density tests. For patients eligible for Medicare, routine testing is allowed once every 2 years. The testing frequency can be increased to one year for patients who have rapidly progressing disease, those who are receiving or discontinuing medical therapy to restore bone mass, or have additional risk factors.
== END 2023-09-17 13:30 | disposition home or self-care (01) ==
LOC: HO.MAMMO 13:29
PROVIDERS: PCP Internal Medicine; Visit Provider Internal Medicine
DX: Z13.820 Encounter for screening for osteoporosis (principal); Z78.0 Asymptomatic menopausal state
CPT/HCPCS: 77080

== ENCOUNTER 2024-04-06 13:56 | Outpatient (REF) | payer MEDICAID, SELFPAY ==
--- NOTE | ~2024-04-06 | MM_ITS ---
EXAMINATION: MM SCREENING DIGITAL BREAST TOMOSYNTHESIS, BILATERAL CLINICAL INFORMATION: Screening. Asymptomatic. COMPARISON: Mammography: This study is compared with prior exams dating back to 2019. TECHNIQUE: Digital breast tomosynthesis is performed in both the craniocaudal and mediolateral oblique views along with computer-aided detection (CAD). Synthesized 2D images are generated from the tomosynthesis. FINDINGS: The breasts are almost entirely fatty (ACR BI-RADS breast composition Category a). There are no significant masses, abnormal calcifications, or other abnormalities. MM/MM tomosynthesis screening BI IMPRESSION: No mammographic evidence of malignancy. There is a small, coarse, benign calcification in the upper outer quadrant of the right breast. ASSESSMENT: BI-RADS BI-RADS 2 - Benign Findings RECOMMENDATION: Routine annual mammography screening. 1 year F/U This examination should not preclude the clinical evaluation of a suspicious palpable abnormality. This patient's information was entered into a reminder system with a target due date for their next mammogram.
== END 2024-04-06 13:57 | disposition home or self-care (01) ==
LOC: HO.MAMMO 13:56
PROVIDERS: PCP Internal Medicine; Visit Provider Internal Medicine
DX: Z12.31 Encounter for screening mammogram for malignant neoplasm of breast (principal)
CPT/HCPCS: 77063; 77067

== ENCOUNTER → 2024-04-06 14:00 | Outpatient (BNV) | payer MEDICAID, SELFPAY | PROVIDERS: PCP Internal Medicine; Visit Provider Radiology Diagnostic Radiology | DX: Z12.31 Encounter for screening mammogram for malignant neoplasm of breast (principal) | CPT/HCPCS: 77063; 77067 ==